=== PATIENT | male | born 1975 | race Hispanic/Latino ===

== ENCOUNTER 2017-11-01 16:44 | Inpatient (IN) | payer MEDICAID ==
[2017-11-01] MEDS ORDERED: Sodium Chloride 0.9% 1,000 ML IV ONE (18:29)
[2017-11-01] MEDS ORDERED: Sodium Chloride 0.9% 1,000 ML ONE (18:50)
[2017-11-01 18:51] LABS: BASO % 0.2 % (0.0-2.0); EOS # 0.1 K/uL (0.0-0.7); EOS % 0.9 % (0.0-4.0); HEMOGLOBIN 13.4 g/dL (12.0-18.0); LYMPH # 1.6 K/uL (1.0-4.3); LYMPH % 12.7 % (20.0-40.0); MEAN CELL VOLUME 80.4 fL (80.0-94.0); MEAN CORPUSCULAR HEMOGLOBIN 27.7 pg (27.0-31.0); MEAN CORPUSCULAR HGB CONC 34.5 g/dL (33.0-37.0); MEAN PLATELET VOLUME 8.2 fL (7.2-11.7); MONO # 0.5 K/uL (0.0-0.8); MONO % 4.2 % (0.0-10.0); RBC 4.83 Mil/uL (4.40-5.90); WHITE BLOOD COUNT 12.2 K/uL (4.8-10.8)
[2017-11-01 18:59] LABS: PROTHROMBIN TIME 11.2 SECONDS (9.7-12.2)
[2017-11-01 19:00] LABS: ALB/GLOB RATIO 1.2 (1.0-2.1); ALBUMIN 4.2 g/dL (3.5-5.0); ALT/SGPT 40 U/L (21-72); AST/SGOT 28 U/L (17-59); BLOOD UREA NITROGEN 16 mg/dL (9-20); CALCIUM 9.2 mg/dl (8.6-10.4); GFR AFRICAN-AMERICAN > 60; GFR NON-AFRICAN AMERICAN > 60; LIPASE 44 U/L (23-300)
[2017-11-01] MEDS ORDERED: Morphine 4 MG/ML VIAL ONE (19:33)
--- NOTE | 2017-11-01 19:48 | RAD ---
PROCEDURE: Radiographs of the chest and abdomen (obstructive series) HISTORY: abd pain, h/o SBO COMPARISON: No prior. TECHNIQUE: AP radiograph of the chest, with upright and supine radiographs of the abdomen. FINDINGS: CHEST: Lungs: Clear. Cardiovascular: Normal size heart. No pulmonary vascular congestion. Pleura: No pleural fluid. No pneumothorax. Other findings: None. ABDOMEN AND PELVIS: Bowel: There are distended small bowel loops identified in the central abdomen with accompanying air-fluid levels in a pattern suggests of the mechanical distal large bowel obstruction although gas is seen within peripheral large-bowel segments. Clinically correlate further. Follow-up abdomen pelvis CT with oral and intravenous contrast is strongly advised. Free air: None. Bones: Unremarkable. Other findings: Limited postoperative changes seen in the mid abdomen possibly only involving the abdominal wall. IMPRESSION: Findings compatible with mechanical distal small bowel obstruction. Follow-up chest CT is advised with oral and intravenous contrast for added characterization of the bowel.
[2017-11-01] MEDS ORDERED: Iohexol 300 100 ML IJ ONE (20:19)
[2017-11-01] MEDS ORDERED: Iohexol 350mg/ml 100 ML ONE (20:20)
[2017-11-01 21:31] LABS: SQUAMOUS EPITHIAL < 1 /hpf (0-5); URINE BACTERIA RARE (<OCC); URINE BILIRUBIN NEGATIVE (NEGATIVE); URINE BLOOD NEGATIVE (NEGATIVE); URINE CLARITY Clear (Clear); URINE COLOR Yellow (YELLOW); URINE GLUCOSE (UA) NORMAL (Normal); URINE LEUKOCYTE ESTERASE NEG Leu/uL (Negative); URINE PROTEIN NEGATIVE (NEGATIVE); URINE UROBILINOGEN NORMAL mg/dL (0.2-1.0)
[2017-11-01 21:51] LABS: BARBITURATES, UR NEGATIVE (NEGATIVE); BENZODIAZEPINES, UR NEGATIVE (NEGATIVE); PHENCYCLIDINE, UR NEGATIVE (NEGATIVE)
[2017-11-01 21:52] LABS: OPIATES, UR POSITIVE (NEGATIVE)
--- NOTE | 2017-11-01 23:09 | CT ---
EXAM: CT Abdomen and Pelvis With Intravenous Contrast CLINICAL HISTORY: 42 years old, male; Pain and signs and symptoms; Vomiting; Abdominal pain; Generalized; Additional info: Abd pain R/O sbo TECHNIQUE: Axial computed tomography images of the abdomen and pelvis with intravenous contrast. All CT scans at this facility use one or more dose reduction techniques, viz.: automated exposure control; ma/kV adjustment per patient size (including targeted exams where dose is matched to indication; i.e. head); or iterative reconstruction technique. Coronal and sagittal reformatted images were created and reviewed. CONTRAST: 100 mL of omnipaque 350 administered intravenously. COMPARISON: CT - ABD PELVIS IV CONTRAST ONLY 2015-01-17 02:58 FINDINGS: Lung bases: Unremarkable. No mass. No consolidation. ABDOMEN: Liver: There is a diffuse decrease in hepatic parenchymal density, consistent with fatty infiltration. Gallbladder and bile ducts: Unremarkable. No calcified stones. No ductal dilation. Pancreas: Unremarkable. No mass. No ductal dilation. Spleen: Unremarkable. No splenomegaly. Adrenals: Unremarkable. No mass. Kidneys and ureters: There is a simple cyst in the right kidney. The left kidney is normal. No hydronephrosis. Stomach and bowel: The cecum and terminal ileum are located in the left lower quadrant. The small bowel loops are predominantly in the upper and right side of the abdomen. Findings suggest malrotation of the bowel. There is marked diffuse fluid filled distention of the small bowel measuring up to 6 cm in greatest diameter. There is mild stranding and fluid in the adjacent to the small bowel mesentery. The distal small bowel and terminal ileum are normal in caliber or decompressed. Findings suggest distal small bowel obstruction. There is no wall thickening or pericolonic stranding to suggest colitis. PELVIS: Appendix: No findings to suggest acute appendicitis. The appendix is located in the left lower quadrant. Bladder: Unremarkable. No mass. Reproductive: Unremarkable as visualized. ABDOMEN and PELVIS: Intraperitoneal space: Unremarkable. No free air. No significant fluid collection. Bones/joints: No acute fracture. No dislocation. Soft tissues: Unremarkable. Vasculature: The SMV is located anterior to the SMA. No abdominal aortic aneurysm. Lymph nodes: There are multiple enlarged mesenteric lymph nodes with mild adjacent inflammatory stranding possibly secondary to mesenteric adenitis, increased compared to the prior study. The largest retail field representative lymph node measures 2 cm. 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 Markedly distended small bowel with decompressed distal small bowel consistent with distal small bowel obstruction. Mesenteric adenopathy with inflammatory changes suggesting mesenteric adenitis.
--- NOTE | 2017-11-01 23:20 | C.PDOC ---
Time Seen by Provider: 11/01/17 17:56 Chief Complaint (Nursing): Abdominal Pain History Per: Patient Onset/Duration Of Symptoms: Days (1) Current Symptoms Are (Timing): Still Present Severity: Moderate Location Of Pain/Discomfort: Diffuse Quality Of Discomfort: "Pain" Associated Symptoms: Nausea, Vomiting Exacerbating Factors: Food Alleviating Factors: None Additional History Per: Prior Records Past Medical History Reviewed: Historical Data, Nursing Documentation, Vital Signs Vital Signs: Last Vital Signs Temp 98.4 F 11/01/17 20:48 Pulse 90 11/01/17 22:32 Resp 15 11/01/17 22:32 BP 124/79 11/01/17 22:32 Pulse Ox 95 11/01/17 23:24 - Medical History PMH: Obstructive Bowel Other PMH: Congenital intestinal malrotation Other Surgeries: Surgery for omphalocele as a baby Family History: States: Unknown Family Hx - Social History Hx Tobacco Use: Yes Hx Alcohol Use: No Hx Substance Use: No - Immunization History Hx Tetanus Toxoid Vaccination: Yes Hx Influenza Vaccination: No Review Of Systems Except As Marked, All Systems Reviewed And Found Negative. Constitutional: Negative for: Fever, Weakness Cardiovascular: Negative for: Chest Pain Respiratory: Negative for: Shortness of Breath Gastrointestinal: Positive for: Nausea, Abdominal Pain. Negative for: Diarrhea , Melena, Hematochezia, Hematemesis Genitourinary: Negative for: Dysuria, Scrotal Pain Musculoskeletal: Negative for: Neck Pain Skin: Negative for: Rash Neurological: Negative for: Weakness, Numbness Physical Exam - Physical Exam Appears: Non-toxic, Other (Uncomfortable in pain) Skin: Normal Color, Warm, Dry Head: Atraumatic, Normacephalic Eye(s): bilateral: Normal Inspection, PERRL, EOMI Neck: Normal ROM, Supple Cardiovascular: Rhythm Regular Respiratory: Normal Breath Sounds, No Accessory Muscle Use Gastrointestinal/Abdominal: Soft, Tenderness (nonspecific), Other (large surgical scar on abdomen) Back: No CVA Tenderness Extremity: Normal ROM Neurological/Psych: Oriented x3, Normal Motor, Normal Sensation ED Course And Treatment - Laboratory Results Result Diagrams: 11/01/17 18:44 11/01/17 18:44 O2 Sat by Pulse Oximetry: 95 Pulse Ox Interpretation: Normal - Other Rad Obstructive series X-Ray: Viewed By Me, Read By Radiologist Interpretation: PROCEDURE: Radiographs of the chest and abdomen (obstructive series). HISTORY: abd pain, h/o SBO. COMPARISON: No prior. TECHNIQUE: AP radiograph of the chest, with upright and supine radiographs of the abdomen. FINDINGS: CHEST: Lungs: Clear. Cardiovascular: Normal size heart. No pulmonary vascular congestion. Pleura: No pleural fluid. No pneumothorax. Other findings: None. ABDOMEN AND PELVIS: Bowel: There are distended small bowel loops identified in the central abdomen with accompanying air-fluid levels in a pattern suggests of the mechanical distal large bowel obstruction although gas is seen within peripheral large-bowel segments. Clinically correlate further. Follow-up abdomen pelvis CT with oral and intravenous contrast is strongly advised. Free air: None. Bones: Unremarkable. Other findings: Limited postoperative changes seen in the mid abdomen possibly only involving the abdominal wall. IMPRESSION: Findings compatible with mechanical distal small bowel obstruction. Follow-up chest CT is advised with oral and intravenous contrast for added characterization of the bowel. - CT Scan/US CT abd/pelv Other Rad Studies (CT/US): Read By Radiologist, Radiology Report Reviewed CT/US Interpretation: IMPRESSION: Intestinal malrotation with cecum and terminal ileum located in left lower. quadrant. . Markedly distended small bowel with decompressed distal small bowel consistent. with distal small bowel obstruction. . Mesenteric adenopathy with inflammatory changes suggesting mesenteric adenitis. Progress - Interventions Interventions:: Observation, Intravenous fluid - Medications Administered Intravenous: Antiemetic, Opiate - Data Reviewed Data Reviewed: Lab, Diagnostic imaging, Old records - Patient Status Patient status: Partially improved - Continuity of Care Discussed patient case with:: Patient, ED Nurse, Covering for PMD Discussed pt. case with medical device sales consultant/specialty: General Surgery - Patient Plan Patient Plan: Admission Disposition Discussed With : Juan Manuel Tapia Comment: He accepted pt on his service. He wants Dr. Lea to be consulted. Pt signed out to Dr. Santamaria (surgery resident). Doctor Will See Patient In The: Hospital Counseled Patient/Family Regarding: Studies Performed, Diagnosis - Disposition Disposition: HOSPITALIZED Disposition Time: 23:30 Condition: SERIOUS - Clinical Impression Clinical Impression: Small bowel obstruction
--- NOTE | 2017-11-01 23:48 | CP.PCM.HP ---
Past Patient History - Past Medical History & Family History Past Medical History?: Yes - Past Social History Smoking Status: Heavy Smoker > 10 Cigarettes Daily - CARDIAC Hx Cardiac Disorders: No - PULMONARY Hx Respiratory Disorders: No - NEUROLOGICAL Hx Neurological Disorder: No - HEENT Hx HEENT Problems: No - RENAL Hx Chronic Kidney Disease: No - ENDOCRINE/METABOLIC Hx Endocrine Disorders: No - HEMATOLOGICAL/ONCOLOGICAL Hx Blood Disorders: No - INTEGUMENTARY Hx Dermatological Problems: No - MUSCULOSKELETAL/RHEUMATOLOGICAL Hx Musculoskeletal Disorders: No Hx Falls: No - GASTROINTESTINAL Hx Bowel Surgery: Yes - GENITOURINARY/GYNECOLOGICAL Hx Genitourinary Disorders: No - PSYCHIATRIC Hx Substance Use: No - SURGICAL HISTORY Hx Surgeries: No - ANESTHESIA Hx Anesthesia: Yes Hx Anesthesia Reactions: No Meds Allergies/Adverse Reactions: Allergies Allergy/AdvReac Type Severity Reaction Status Date / Time No Known Allergies Allergy Verified 11/01/17 16:55 Results - Vital Signs Recent Vital Signs: Last Vital Signs Temp 98.4 F 11/01/17 20:48 Pulse 90 11/01/17 22:32 Resp 15 11/01/17 22:32 BP 124/79 11/01/17 22:32 Pulse Ox 95 11/01/17 23:31 - Labs Result Diagrams: 11/01/17 18:44 11/01/17 18:44 Labs: Laboratory Results - last 24 hr 11/01/17 11/01/17 11/01/17 18:44 18:44 18:44 WBC 12.2 H D RBC 4.83 Hgb 13.4 Hct 38.9 MCV 80.4 D MCH 27.7 MCHC 34.5 RDW 13.0 Plt Count 194 MPV 8.2 Neut % (Auto) 82.0 H Lymph % (Auto) 12.7 L [place] % (Auto) 4.2 Eos % (Auto) 0.9 Baso % (Auto) 0.2 Neut # (Auto) 10.0 H Lymph # (Auto) 1.6 [place] # (Auto) 0.5 Eos # (Auto) 0.1 Baso # (Auto) 0.0 PT 11.2 INR 1.0 APTT 34 Sodium 139 Potassium 4.0 Chloride 101 Carbon Dioxide 26 Anion Gap 16 BUN 16 Creatinine 0.8 Est GFR ( Amer) > 60 Est GFR (Non-Af Amer) > 60 Random Glucose 129 H Calcium 9.2 Total Bilirubin 0.3 AST 28 ALT 40 Alkaline Phosphatase 88 Total Protein 7.7 Albumin 4.2 Globulin 3.5 Albumin/Globulin Ratio 1.2 Lipase 44 Urine Color Urine Clarity Urine pH Ur Specific [place] Urine Protein Urine Glucose (UA) Urine Ketones Urine Blood Urine Nitrate Urine Bilirubin Urine Urobilinogen Ur Leukocyte Esterase Urine WBC (Auto) Urine RBC (Auto) Ur Squamous Epith Cells Urine Bacteria Urine Opiates Screen Urine Methadone Screen Ur Barbiturates Screen Ur Phencyclidine Scrn Ur Amphetamines Screen U Benzodiazepines Scrn U Oth Cocaine Metabols U Cannabinoids Screen 11/01/17 11/01/17 21:19 21:19 WBC RBC Hgb Hct MCV MCH MCHC RDW Plt Count MPV Neut % (Auto) Lymph % (Auto) [place] % (Auto) Eos % (Auto) Baso % (Auto) Neut # (Auto) Lymph # (Auto) [place] # (Auto) Eos # (Auto) Baso # (Auto) PT INR APTT Sodium Potassium Chloride Carbon Dioxide Anion Gap BUN Creatinine Est GFR ( Amer) Est GFR (Non-Af Amer) Random Glucose Calcium Total Bilirubin AST ALT Alkaline Phosphatase Total Protein Albumin Globulin Albumin/Globulin Ratio Lipase Urine Color Yellow Urine Clarity Clear Urine pH 5.0 Ur Specific [place] 1.015 Urine Protein Negative Urine Glucose (UA) Normal Urine Ketones Negative Urine Blood Negative Urine Nitrate Negative Urine Bilirubin Negative Urine Urobilinogen Normal Ur Leukocyte Esterase Neg Urine WBC (Auto) < 1 Urine RBC (Auto) 1 Ur Squamous Epith Cells < 1 Urine Bacteria Rare Urine Opiates Screen Positive H Urine Methadone Screen Positive H Ur Barbiturates Screen Negative Ur Phencyclidine Scrn Negative Ur Amphetamines Screen Positive H U Benzodiazepines Scrn Negative U Oth Cocaine Metabols Negative U Cannabinoids Screen Negative
--- NOTE | 2017-11-01 23:53 | CP.PCM.CON ---
<Lauryn Mcgowan - Last Filed: 11/02/17 08:18> History of Present Illness - History of Present Illness History of Present Illness: Surgery Consult: Dr. Valderrama Pt is a 42M with PMHx significant for rercurrent bouts of SBO presenting to with complaints of abdominal pain. Pt states pain started last night, was diffuse in nature & associated with nausea. Pt admits to having normal BMs and states last BM was last night. He denies flatus however for the past few days. Pt states this episode felt like his previous episodes of obstruction so he came to the ER. In the ER, pt had an obstructive series & CT abdomen/pelvis which showed air fluid levels suggestive of SBO. Surgery called to evaluate. In the ER, pt resting comfortably in bed. States he hasn't had any more episodes of vomiting but abdominal pain is still present. He admits to multiple episodes of non- bloody, bilious vomiting upon arrival to ER. Denies flatus. Denies fevers/chills , chest pain or SOB. PMHx: recurrent SBO PSHx: laparotomy for omphalocele as an infant SocialHx: 30 pack smoking hx, denies EtOH, on methadone for hx of drug abuse NKDA Review of Systems - Review of Systems All systems: reviewed and no additional remarkable complaints except (as per HPI ) Past Patient History - Past Medical History & Family History Past Medical History?: Yes - Past Social History Smoking Status: Former Smoker Chewing Tobacco Use: No Alcohol: None - CARDIAC Hx Cardiac Disorders: No - PULMONARY Hx Respiratory Disorders: No - NEUROLOGICAL Hx Neurological Disorder: No - HEENT Hx HEENT Problems: No - RENAL Hx Chronic Kidney Disease: No - ENDOCRINE/METABOLIC Hx Endocrine Disorders: No - HEMATOLOGICAL/ONCOLOGICAL Hx Blood Disorders: No - INTEGUMENTARY Hx Dermatological Problems: No - MUSCULOSKELETAL/RHEUMATOLOGICAL Hx Musculoskeletal Disorders: No Hx Falls: No - GASTROINTESTINAL Hx Bowel Surgery: Yes - GENITOURINARY/GYNECOLOGICAL Hx Genitourinary Disorders: No - PSYCHIATRIC Hx Substance Use: Yes - SURGICAL HISTORY Hx Surgeries: Yes - ANESTHESIA Hx Anesthesia: Yes Hx Anesthesia Reactions: No Meds Allergies/Adverse Reactions: Allergies Allergy/AdvReac Type Severity Reaction Status Date / Time No Known Allergies Allergy Verified 11/01/17 16:55 Physical Exam - Constitutional Appears: Well, No Acute Distress - Head Exam Head Exam: ATRAUMATIC, NORMOCEPHALIC - Eye Exam Eye Exam: Normal appearance - ENT Exam ENT Exam: Mucous Membranes Moist - Respiratory Exam Respiratory Exam: NORMAL BREATHING PATTERN - Cardiovascular Exam Cardiovascular Exam: RRR - GI/Abdominal Exam GI & Abdominal Exam: Distended (tympanitic ), Soft, Tenderness (diffuse). absent: Guarding - Extremities Exam Extremities exam: Positive for: normal inspection - Neurological Exam Neurological exam: Alert, Oriented x3 - Skin Skin Exam: Dry, Warm Results - Vital Signs Recent Vital Signs: Last Vital Signs Temp 98.4 F 11/01/17 20:48 Pulse 90 11/01/17 22:32 Resp 15 11/01/17 22:32 BP 124/79 11/01/17 22:32 Pulse Ox 95 11/01/17 23:31 - Labs Result Diagrams: 11/01/17 18:44 11/01/17 18:44 Labs: Laboratory Results - last 24 hr 11/01/17 11/01/17 11/01/17 18:44 18:44 18:44 WBC 12.2 H D RBC 4.83 Hgb 13.4 Hct 38.9 MCV 80.4 D MCH 27.7 MCHC 34.5 RDW 13.0 Plt Count 194 MPV 8.2 Neut % (Auto) 82.0 H Lymph % (Auto) 12.7 L [place] % (Auto) 4.2 Eos % (Auto) 0.9 Baso % (Auto) 0.2 Neut # (Auto) 10.0 H Lymph # (Auto) 1.6 [place] # (Auto) 0.5 Eos # (Auto) 0.1 Baso # (Auto) 0.0 PT 11.2 INR 1.0 APTT 34 Sodium 139 Potassium 4.0 Chloride 101 Carbon Dioxide 26 Anion Gap 16 BUN 16 Creatinine 0.8 Est GFR ( Amer) > 60 Est GFR (Non-Af Amer) > 60 Random Glucose 129 H Calcium 9.2 Total Bilirubin 0.3 AST 28 ALT 40 Alkaline Phosphatase 88 Total Protein 7.7 Albumin 4.2 Globulin 3.5 Albumin/Globulin Ratio 1.2 Lipase 44 Urine Color Urine Clarity Urine pH Ur Specific [place] Urine Protein Urine Glucose (UA) Urine Ketones Urine Blood Urine Nitrate Urine Bilirubin Urine Urobilinogen Ur Leukocyte Esterase Urine WBC (Auto) Urine RBC (Auto) Ur Squamous Epith Cells Urine Bacteria Urine Opiates Screen Urine Methadone Screen Ur Barbiturates Screen Ur Phencyclidine Scrn Ur Amphetamines Screen U Benzodiazepines Scrn U Oth Cocaine Metabols U Cannabinoids Screen 11/01/17 11/01/17 21:19 21:19 WBC RBC Hgb Hct MCV MCH MCHC RDW Plt Count MPV Neut % (Auto) Lymph % (Auto) [place] % (Auto) Eos % (Auto) Baso % (Auto) Neut # (Auto) Lymph # (Auto) [place] # (Auto) Eos # (Auto) Baso # (Auto) PT INR APTT Sodium Potassium Chloride Carbon Dioxide Anion Gap BUN Creatinine Est GFR ( Amer) Est GFR (Non-Af Amer) Random Glucose Calcium Total Bilirubin AST ALT Alkaline Phosphatase Total Protein Albumin Globulin Albumin/Globulin Ratio Lipase Urine Color Yellow Urine Clarity Clear Urine pH 5.0 Ur Specific [place] 1.015 Urine Protein Negative Urine Glucose (UA) Normal Urine Ketones Negative Urine Blood Negative Urine Nitrate Negative Urine Bilirubin Negative Urine Urobilinogen Normal Ur Leukocyte Esterase Neg Urine WBC (Auto) < 1 Urine RBC (Auto) 1 Ur Squamous Epith Cells < 1 Urine Bacteria Rare Urine Opiates Screen Positive H Urine Methadone Screen Positive H Ur Barbiturates Screen Negative Ur Phencyclidine Scrn Negative Ur Amphetamines Screen Positive H U Benzodiazepines Scrn Negative U Oth Cocaine Metabols Negative U Cannabinoids Screen Negative - Imaging and Cardiology CT scan - abdomen Status: Image reviewed by me, Report reviewed by me Assessment & Plan - Assessment and Plan (Free Text) Assessment: 42M with SBO Plan: - Pt adamantly refusing NGT even after risks and benefits were explained - will cont to monitor with serial abdominal exams - NPO with IVF - pain management - d/w Dr. Lavelle Mcgowan, PGY-3 <Nick Valderrama B - Last Filed: 11/02/17 20:19> Meds - Medications Medications: Current Medications Enoxaparin Sodium (Lovenox) 40 mg SC DAILY [facility] Last Admin: 11/02/17 12:10 Dose: 40 mg Lactated Ringer's (Lactated Ringer's) 1,000 mls @ 125 mls/hr IV .Q8H [facility] Last Admin: 11/02/17 20:07 Dose: 125 mls/hr Piperacillin Sod/Tazobactam Sod (Zosyn 3.375 Gm Iv Premix) 3.375 gm in 50 mls @ 100 mls/hr IVPB Q8H [facility] PRN Reason: Protocol Last Admin: 11/02/17 16:45 Dose: 100 mls/hr Metronidazole (Flagyl) 500 mg in 100 mls @ 100 mls/hr IVPB Q8 [facility] PRN Reason: Protocol Last Admin: 11/02/17 14:30 Dose: 100 mls/hr Methadone HCl (Methadose) 240 mg PO DAILY [facility] Last Admin: 11/02/17 12:04 Dose: 240 mg Ondansetron HCl (Zofran Inj) 4 mg IVP Q4H PRN PRN Reason: Nausea/Vomiting Pantoprazole Sodium (Protonix Inj) 40 mg IVP DAILY [facility] Last Admin: 11/02/17 12:10 Dose: 40 mg Pneumococcal Polyvalent Vaccine (Pneumovax 23 Vaccine) 0.5 ml IM .ONCE ONE Stop: 11/04/17 10:01 Results - Vital Signs Recent Vital Signs: Last Vital Signs Temp 98.7 F 11/02/17 15:15 Pulse 80 11/02/17 15:15 Resp 20 11/02/17 15:15 BP 118/70 11/02/17 15:15 Pulse Ox 98 11/02/17 15:15 - Labs Result Diagrams: 11/01/17 18:44 11/01/17 18:44 Labs: Laboratory Results - last 24 hr 11/01/17 11/01/17 21:19 21:19 Urine Color Yellow Urine Clarity Clear Urine pH 5.0 Ur Specific [place] 1.015 Urine Protein Negative Urine Glucose (UA) Normal Urine Ketones Negative Urine Blood Negative Urine Nitrate Negative Urine Bilirubin Negative Urine Urobilinogen Normal Ur Leukocyte Esterase Neg Urine WBC (Auto) < 1 Urine RBC (Auto) 1 Ur Squamous Epith Cells < 1 Urine Bacteria Rare Urine Opiates Screen Positive H Urine Methadone Screen Positive H Ur Barbiturates Screen Negative Ur Phencyclidine Scrn Negative Ur Amphetamines Screen Positive H U Benzodiazepines Scrn Negative U Oth Cocaine Metabols Negative U Cannabinoids Screen Negative Attending/Attestation - Attestation I have personally seen and examined this patient.: Yes I have fully participated in the care of the patient.: Yes I have reviewed all pertinent clinical information: Yes Notes (Text): Pt was seen and examined at bedside Agree with above note and assessment Pt with Severe abdominal pain and nauses Abdomen: Soft, Tender in LLQ, ND Clinically intestinal obstruction present Labs and radiology reviewed Ass: PSBO due to adhesions Plan : Repeat AXR NG tube if vomits NPO, IVF CBC, BMP,PT/INR Plan d.w pt in detail Risk and benefit explained in detail.
[2017-11-02] MEDS ORDERED: Lactated Ringer's 1,000 ML ONE
[2017-11-02] MEDS ORDERED: Morphine 4 MG/ML VIAL ONE
[2017-11-02] MEDS: Piperacill/Tazo 3.375gm in Dex 3.375 GM/50 ML BAG IVPB SCH ×4 (00:19→23:51)
[2017-11-02 01:01] VITALS: RESP 20
[2017-11-02] MEDS: metroNIDAZOLE IV 500 mg/100 ml 500 MG/100 ML BAG IVPB SCH ×3 (08:45→22:10)
[2017-11-02] MEDS: Lactated Ringer's 1,000 ML IV SCH ×4 (08:50→20:07)
[2017-11-02] MEDS: Morphine 4 MG/ML VIAL IVP PRN ×2 (08:59)
--- NOTE | 2017-11-02 10:48 | CP.PCM.PN ---
Subjective - Date & Time of Evaluation Date of Evaluation: 11/02/17 Time of Evaluation: 10:45 - Subjective Subjective: PGY2 progress note for Dr. Tapia 42 year old male with past medical history of Omphocele with repair as an infant and recurrent SBO, last episode 3 months ago, is admitted for SBO. Patient developed severe abdominal pain about 2 days ago accompanied with N/V. Patient states that he is aware when he is getting symptoms of SBO and that is what brought him to ED. In ED, pt refused to have NG tube placed. This morning , he states his abd pain has improved since admission. Denies having any N/V, F /C, CP, SOB currently. PMHx: stated above Sx: Omphocele repai social: denies tobacco, etoh or drug use no home meds Objective - Vital Signs/Intake and Output Vital Signs (last 24 hours): Temp Pulse Resp BP Pulse Ox 98.2 F 82 20 119/69 96 11/02/17 08:00 11/02/17 08:00 11/02/17 08:00 11/02/17 08:00 11/02/17 08:00 - Medications Medications: Current Medications Lactated Ringer's (Lactated Ringer's) 1,000 mls @ 125 mls/hr IV .Q8H [facility] Last Admin: 11/02/17 08:50 Dose: 125 mls/hr Piperacillin Sod/Tazobactam Sod (Zosyn 3.375 Gm Iv Premix) 3.375 gm in 50 mls @ 100 mls/hr IVPB Q8H [facility] PRN Reason: Protocol Last Admin: 11/02/17 08:58 Dose: 100 mls/hr Metronidazole (Flagyl) 500 mg in 100 mls @ 100 mls/hr IVPB Q8 [facility] PRN Reason: Protocol Last Admin: 11/02/17 08:45 Dose: 100 mls/hr Methadone HCl (Methadose) 240 mg PO DAILY [facility] Ondansetron HCl (Zofran Inj) 4 mg IVP Q4H [facility]N PRN Reason: Nausea/Vomiting Pneumococcal Polyvalent Vaccine (Pneumovax 23 Vaccine) 0.5 ml IM .ONCE ONE Stop: 11/04/17 10:01 - Labs Labs: 11/01/17 18:44 11/01/17 18:44 PT 11.2 SECONDS (9.7-12.2) 11/01/17 18:44 INR 1.0 11/01/17 18:44 APTT 34 SECONDS (21-34) 11/01/17 18:44 - Constitutional Appears: Non-toxic, No Acute Distress - Head Exam Head Exam: ATRAUMATIC - ENT Exam ENT Exam: Mucous Membranes Moist - Respiratory Exam Respiratory Exam: Clear to Ausculation Bilateral, NORMAL BREATHING PATTERN. absent: Accessory Muscle Use, Rales, Rhonchi, Wheezes, Respiratory Distress - Cardiovascular Exam Cardiovascular Exam: REGULAR RHYTHM, +S1, +S2. absent: Gallop, Rubs, Murmur - GI/Abdominal Exam GI & Abdominal Exam: Soft, Tenderness, Normal Bowel Sounds. absent: Distended, Firm, Guarding, Rigid, Organomegaly Additional comments: mid line scar noted - Extremities Exam Extremities Exam: absent: Pedal Edema, Tenderness - Neurological Exam Neurological Exam: Alert, Awake, Oriented x3 - Psychiatric Exam Psychiatric exam: Normal Affect, Normal Mood - Skin Skin Exam: Dry, Intact, Normal Color, Warm Assessment and Plan - Assessment and Plan (Free Text) Assessment: 42 year old male with past medical history of omphocele repair in infancy and hx of recurrent SBOs is admitted for SBO. 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 SBO - Currently no plan for OR as pt clinically improving - Pt refused NG tube on admission - Surgery, Dr. Valderrama is consulted - GI, Dr. Graham is consulted - Continue LR at 125 cc - NPO - IV abx zosyn and flagyl - zofran prn - continue serial abd exams Opiate abuse - UDS positive for opiates, amphetamines and mathadone - Continue methadone 240 mg po qd Prophylaxis - Protonix - SCDs - Lovenox All orders and management per Dr. Tapia
[2017-11-02] MEDS: Methadone 40 mg Tab PO SCH (12:04)
[2017-11-02] MEDS: Enoxaparin 40 mg Syringe SC SCH (12:10)
--- NOTE | 2017-11-02 13:34 | CP.PCM.CON ---
<TapiaLexis - Last Filed: 11/02/17 13:51> History of Present Illness - History of Present Illness History of Present Illness: Initial GI Consult HPI: Patient is a 42yo male with past medical history of drug abuse presently on methadone, omphalocele s/p repair during infancy and recurrent episodes of SBO that presented to [facility] with complaints of abdominal pain. He reported that his abdominal pain was diffuse and associated with nausea and non- bilious, non-bloody emesis. He reports that prior to this episode he was in his usual state of health and had normal bowel movements with the last one being the day prior to presentation. Reported difficulty passing flatus. In the ED, an abdominal obstructive series was obtained which revealed findings compatible with distal small bowel obstruction. 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 GI consulted for SBO evaluation. He denied fever, chills, cough, focal weakness, numbness, tingling, chest pain, palpitations, SOB. 12point ROS as per above otherwise negative PMH: as stated above PSH: omphalocele repair as an infant Allergies: NKDA Social Hx: Tobacco use with 30 pack smoking history, denities etoh, history of drug abuse presently on methadone Family Hx: No history of GI malignancy Endoscopic hx: denies Past Patient History - Past Medical History & Family History Past Medical History?: Yes - Past Social History Smoking Status: Former Smoker Chewing Tobacco Use: No Alcohol: None - CARDIAC Hx Cardiac Disorders: No - PULMONARY Hx Respiratory Disorders: No - NEUROLOGICAL Hx Neurological Disorder: No - HEENT Hx HEENT Problems: No - RENAL Hx Chronic Kidney Disease: No - ENDOCRINE/METABOLIC Hx Endocrine Disorders: No - HEMATOLOGICAL/ONCOLOGICAL Hx Blood Disorders: No - INTEGUMENTARY Hx Dermatological Problems: No - MUSCULOSKELETAL/RHEUMATOLOGICAL Hx Musculoskeletal Disorders: No Hx Falls: No - GASTROINTESTINAL Hx Bowel Surgery: Yes - GENITOURINARY/GYNECOLOGICAL Hx Genitourinary Disorders: No - PSYCHIATRIC Hx Substance Use: Yes - SURGICAL HISTORY Hx Surgeries: Yes - ANESTHESIA Hx Anesthesia: Yes Hx Anesthesia Reactions: No Meds Allergies/Adverse Reactions: Allergies Allergy/AdvReac Type Severity Reaction Status Date / Time No Known Allergies Allergy Verified 11/01/17 16:55 - Medications Medications: Current Medications Enoxaparin Sodium (Lovenox) 40 mg SC DAILY [facility] Last Admin: 11/02/17 12:10 Dose: 40 mg Lactated Ringer's (Lactated Ringer's) 1,000 mls @ 125 mls/hr IV .Q8H [facility] Last Admin: 11/02/17 08:50 Dose: 125 mls/hr Piperacillin Sod/Tazobactam Sod (Zosyn 3.375 Gm Iv Premix) 3.375 gm in 50 mls @ 100 mls/hr IVPB Q8H [facility] PRN Reason: Protocol Last Admin: 11/02/17 08:58 Dose: 100 mls/hr Metronidazole (Flagyl) 500 mg in 100 mls @ 100 mls/hr IVPB Q8 [facility] PRN Reason: Protocol Last Admin: 11/02/17 08:45 Dose: 100 mls/hr Methadone HCl (Methadose) 240 mg PO DAILY [facility] Last Admin: 11/02/17 12:04 Dose: 240 mg Ondansetron HCl (Zofran Inj) 4 mg IVP Q4H PRN PRN Reason: Nausea/Vomiting Pantoprazole Sodium (Protonix Inj) 40 mg IVP DAILY [facility] Last Admin: 11/02/17 12:10 Dose: 40 mg Pneumococcal Polyvalent Vaccine (Pneumovax 23 Vaccine) 0.5 ml IM .ONCE ONE Stop: 11/04/17 10:01 Physical Exam - Constitutional Appears: No Acute Distress - Head Exam Head Exam: ATRAUMATIC, NORMAL INSPECTION, NORMOCEPHALIC - Eye Exam Eye Exam: EOMI, PERRL - ENT Exam ENT Exam: Mucous Membranes Moist - Neck Exam Neck exam: Positive for: Normal Inspection - Respiratory Exam Respiratory Exam: Clear to Auscultation Bilateral. absent: Rales, Rhonchi, Wheezes - Cardiovascular Exam Cardiovascular Exam: RRR, +S1, +S2. absent: Gallop, JVD, Rubs - GI/Abdominal Exam GI & Abdominal Exam: Distended, Soft, Tenderness. absent: Firm, Guarding, Rebound Additional comments: transverse abdominal scar from prior omphalocele repair - Extremities Exam Extremities exam: Positive for: normal inspection. Negative for: pedal edema - Neurological Exam Neurological exam: Alert, CN II-XII Intact, Oriented x3 - Psychiatric Exam Psychiatric exam: Normal Affect, Normal Mood - Skin Skin Exam: Dry, Intact, Normal Color, Warm Results - Vital Signs Recent Vital Signs: Last Vital Signs Temp 98.2 F 11/02/17 08:00 Pulse 82 11/02/17 08:00 Resp 20 11/02/17 08:00 BP 119/69 11/02/17 08:00 Pulse Ox 96 11/02/17 08:00 - Labs Result Diagrams: 11/01/17 18:44 11/01/17 18:44 Labs: Laboratory Results - last 24 hr 11/01/17 11/01/17 11/01/17 18:44 18:44 18:44 WBC 12.2 H D RBC 4.83 Hgb 13.4 Hct 38.9 MCV 80.4 D MCH 27.7 MCHC 34.5 RDW 13.0 Plt Count 194 MPV 8.2 Neut % (Auto) 82.0 H Lymph % (Auto) 12.7 L [place] % (Auto) 4.2 Eos % (Auto) 0.9 Baso % (Auto) 0.2 Neut # (Auto) 10.0 H Lymph # (Auto) 1.6 [place] # (Auto) 0.5 Eos # (Auto) 0.1 Baso # (Auto) 0.0 PT 11.2 INR 1.0 APTT 34 Sodium 139 Potassium 4.0 Chloride 101 Carbon Dioxide 26 Anion Gap 16 BUN 16 Creatinine 0.8 Est GFR ( Amer) > 60 Est GFR (Non-Af Amer) > 60 Random Glucose 129 H Calcium 9.2 Total Bilirubin 0.3 AST 28 ALT 40 Alkaline Phosphatase 88 Total Protein 7.7 Albumin 4.2 Globulin 3.5 Albumin/Globulin Ratio 1.2 Lipase 44 Urine Color Urine Clarity Urine pH Ur Specific [place] Urine Protein Urine Glucose (UA) Urine Ketones Urine Blood Urine Nitrate Urine Bilirubin Urine Urobilinogen Ur Leukocyte Esterase Urine WBC (Auto) Urine RBC (Auto) Ur Squamous Epith Cells Urine Bacteria Urine Opiates Screen Urine Methadone Screen Ur Barbiturates Screen Ur Phencyclidine Scrn Ur Amphetamines Screen U Benzodiazepines Scrn U Oth Cocaine Metabols U Cannabinoids Screen 11/01/17 11/01/17 21:19 21:19 WBC RBC Hgb Hct MCV MCH MCHC RDW Plt Count MPV Neut % (Auto) Lymph % (Auto) [place] % (Auto) Eos % (Auto) Baso % (Auto) Neut # (Auto) Lymph # (Auto) [place] # (Auto) Eos # (Auto) Baso # (Auto) PT INR APTT Sodium Potassium Chloride Carbon Dioxide Anion Gap BUN Creatinine Est GFR ( Amer) Est GFR (Non-Af Amer) Random Glucose Calcium Total Bilirubin AST ALT Alkaline Phosphatase Total Protein Albumin Globulin Albumin/Globulin Ratio Lipase Urine Color Yellow Urine Clarity Clear Urine pH 5.0 Ur Specific Zenia 1.015 Urine Protein Negative Urine Glucose (UA) Normal Urine Ketones Negative Urine Blood Negative Urine Nitrate Negative Urine Bilirubin Negative Urine Urobilinogen Normal Ur Leukocyte Esterase Neg Urine WBC (Auto) < 1 Urine RBC (Auto) 1 Ur Squamous Epith Cells < 1 Urine Bacteria Rare Urine Opiates Screen Positive H Urine Methadone Screen Positive H Ur Barbiturates Screen Negative Ur Phencyclidine Scrn Negative Ur Amphetamines Screen Positive H U Benzodiazepines Scrn Negative U Oth Cocaine Metabols Negative U Cannabinoids Screen Negative Assessment & Plan - Assessment and Plan (Free Text) Plan: 42yo male with history of drug abuse on methadone, omphalocele s/p repair in infancy, recurrent SBO presents with abdominal pain associated with nausea/ vomiting secondary to SBO 1. SBO 2. Opiate abuse 3. 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 Osei <Ac Osei - Last Filed: 11/02/17 17:54> Meds - Medications Medications: Current Medications Enoxaparin Sodium (Lovenox) 40 mg SC DAILY [facility] Last Admin: 11/02/17 12:10 Dose: 40 mg Lactated Ringer's (Lactated Ringer's) 1,000 mls @ 125 mls/hr IV .Q8H [facility] Last Admin: 11/02/17 16:53 Dose: Not Given Piperacillin Sod/Tazobactam Sod (Zosyn 3.375 Gm Iv Premix) 3.375 gm in 50 mls @ 100 mls/hr IVPB Q8H [facility] PRN Reason: Protocol Last Admin: 11/02/17 16:45 Dose: 100 mls/hr Metronidazole (Flagyl) 500 mg in 100 mls @ 100 mls/hr IVPB Q8 [facility] PRN Reason: Protocol Last Admin: 11/02/17 14:30 Dose: 100 mls/hr Methadone HCl (Methadose) 240 mg PO DAILY [facility] Last Admin: 11/02/17 12:04 Dose: 240 mg Ondansetron HCl (Zofran Inj) 4 mg IVP Q4H PRN PRN Reason: Nausea/Vomiting Pantoprazole Sodium (Protonix Inj) 40 mg IVP DAILY [facility] Last Admin: 11/02/17 12:10 Dose: 40 mg Pneumococcal Polyvalent Vaccine (Pneumovax 23 Vaccine) 0.5 ml IM .ONCE ONE Stop: 11/04/17 10:01 Results - Vital Signs Recent Vital Signs: Last Vital Signs Temp 98.7 F 11/02/17 15:15 Pulse 80 11/02/17 15:15 Resp 20 11/02/17 15:15 BP 118/70 11/02/17 15:15 Pulse Ox 98 11/02/17 15:15 - Labs Result Diagrams: 11/01/17 18:44 11/01/17 18:44 Labs: Laboratory Results - last 24 hr 11/01/17 11/01/17 11/01/17 18:44 18:44 18:44 WBC 12.2 H D RBC 4.83 Hgb 13.4 Hct 38.9 MCV 80.4 D MCH 27.7 MCHC 34.5 RDW 13.0 Plt Count 194 MPV 8.2 Neut % (Auto) 82.0 H Lymph % (Auto) 12.7 L [place] % (Auto) 4.2 Eos % (Auto) 0.9 Baso % (Auto) 0.2 Neut # (Auto) 10.0 H Lymph # (Auto) 1.6 [place] # (Auto) 0.5 Eos # (Auto) 0.1 Baso # (Auto) 0.0 PT 11.2 INR 1.0 APTT 34 Sodium 139 Potassium 4.0 Chloride 101 Carbon Dioxide 26 Anion Gap 16 BUN 16 Creatinine 0.8 Est GFR ( Amer) > 60 Est GFR (Non-Af Amer) > 60 Random Glucose 129 H Calcium 9.2 Total Bilirubin 0.3 AST 28 ALT 40 Alkaline Phosphatase 88 Total Protein 7.7 Albumin 4.2 Globulin 3.5 Albumin/Globulin Ratio 1.2 Lipase 44 Urine Color Urine Clarity Urine pH Ur Specific [place] Urine Protein Urine Glucose (UA) Urine Ketones Urine Blood Urine Nitrate Urine Bilirubin Urine Urobilinogen Ur Leukocyte Esterase Urine WBC (Auto) Urine RBC (Auto) Ur Squamous Epith Cells Urine Bacteria Urine Opiates Screen Urine Methadone Screen Ur Barbiturates Screen Ur Phencyclidine Scrn Ur Amphetamines Screen U Benzodiazepines Scrn U Oth Cocaine Metabols U Cannabinoids Screen 11/01/17 11/01/17 21:19 21:19 WBC RBC Hgb Hct MCV MCH MCHC RDW Plt Count MPV Neut % (Auto) Lymph % (Auto) [place] % (Auto) Eos % (Auto) Baso % (Auto) Neut # (Auto) Lymph # (Auto) [place] # (Auto) Eos # (Auto) Baso # (Auto) PT INR APTT Sodium Potassium Chloride Carbon Dioxide Anion Gap BUN Creatinine Est GFR ( Amer) Est GFR (Non-Af Amer) Random Glucose Calcium Total Bilirubin AST ALT Alkaline Phosphatase Total Protein Albumin Globulin Albumin/Globulin Ratio Lipase Urine Color Yellow Urine Clarity Clear Urine pH 5.0 Ur Specific [place] 1.015 Urine Protein Negative Urine Glucose (UA) Normal Urine Ketones Negative Urine Blood Negative Urine Nitrate Negative Urine Bilirubin Negative Urine Urobilinogen Normal Ur Leukocyte Esterase Neg Urine WBC (Auto) < 1 Urine RBC (Auto) 1 Ur Squamous Epith Cells < 1 Urine Bacteria Rare Urine Opiates Screen Positive H Urine Methadone Screen Positive H Ur Barbiturates Screen Negative Ur Phencyclidine Scrn Negative Ur Amphetamines Screen Positive H U Benzodiazepines Scrn Negative U Oth Cocaine Metabols Negative U Cannabinoids Screen Negative Attending/Attestation - Attestation I have personally seen and examined this patient.: Yes I have fully participated in the care of the patient.: Yes I have reviewed all pertinent clinical information: Yes Notes (Text): 11/02/17 17:53 42 year old male with h/o congenital omphalocele s/p repair and chronic intermittent SBO admitted with recurrent sbo. Recommend surgical eval. IV hydration/anti-emetics/pain control. Supportive measures.
--- NOTE | 2017-11-02 20:11 | CP.PCM.PN ---
Subjective - Date & Time of Evaluation Date of Evaluation: 11/02/17 Time of Evaluation: 08:40 - Subjective Subjective: clinically same Objective - Vital Signs/Intake and Output Vital Signs (last 24 hours): Temp Pulse Resp BP Pulse Ox 98.7 F 80 20 118/70 98 11/02/17 15:15 11/02/17 15:15 11/02/17 15:15 11/02/17 15:15 11/02/17 15:15 - Medications Medications: Current Medications Enoxaparin Sodium (Lovenox) 40 mg SC DAILY [facility] Last Admin: 11/02/17 12:10 Dose: 40 mg Lactated Ringer's (Lactated Ringer's) 1,000 mls @ 125 mls/hr IV .Q8H [facility] Last Admin: 11/02/17 20:07 Dose: 125 mls/hr Piperacillin Sod/Tazobactam Sod (Zosyn 3.375 Gm Iv Premix) 3.375 gm in 50 mls @ 100 mls/hr IVPB Q8H [facility] PRN Reason: Protocol Last Admin: 11/02/17 16:45 Dose: 100 mls/hr Metronidazole (Flagyl) 500 mg in 100 mls @ 100 mls/hr IVPB Q8 [facility] PRN Reason: Protocol Last Admin: 11/02/17 14:30 Dose: 100 mls/hr Methadone HCl (Methadose) 240 mg PO DAILY [facility] Last Admin: 11/02/17 12:04 Dose: 240 mg Ondansetron HCl (Zofran Inj) 4 mg IVP Q4H PRN PRN Reason: Nausea/Vomiting Pantoprazole Sodium (Protonix Inj) 40 mg IVP DAILY [facility] Last Admin: 11/02/17 12:10 Dose: 40 mg Pneumococcal Polyvalent Vaccine (Pneumovax 23 Vaccine) 0.5 ml IM .ONCE ONE Stop: 11/04/17 10:01 - Labs Labs: 11/01/17 18:44 11/01/17 18:44 PT 11.2 SECONDS (9.7-12.2) 11/01/17 18:44 INR 1.0 11/01/17 18:44 APTT 34 SECONDS (21-34) 11/01/17 18:44 - Constitutional Appears: Well - Head Exam Head Exam: ATRAUMATIC, NORMAL INSPECTION, NORMOCEPHALIC - Eye Exam Eye Exam: EOMI, Normal appearance, PERRL Pupil Exam: NORMAL ACCOMODATION, PERRL - ENT Exam ENT Exam: Mucous Membranes Moist, Normal Exam - Neck Exam Neck Exam: Full ROM, Normal Inspection. absent: Lymphadenopathy - Respiratory Exam Respiratory Exam: Decreased Breath Sounds - Cardiovascular Exam Cardiovascular Exam: REGULAR RHYTHM, +S1, +S2 - GI/Abdominal Exam GI & Abdominal Exam: Soft, Diminished Bowel Sounds - Rectal Exam Rectal Exam: Deferred
[2017-11-03] MEDS: Lactated Ringer's 1,000 ML IV SCH ×6 (02:17→23:45)
[2017-11-03] MEDS: metroNIDAZOLE IV 500 mg/100 ml 500 MG/100 ML BAG IVPB SCH ×3 (05:16→22:08)
--- NOTE | 2017-11-03 07:29 | CP.PCM.PN ---
Subjective - Date & Time of Evaluation Date of Evaluation: 11/03/17 Time of Evaluation: 07:22 - Subjective Subjective: PGy2 progress note for Dr. Tapia Pt seen and examined at bedside. No acute events overnight. Patient states his abdominal pain has improved. He is passing gas but no bowel movements yet. Patient denies having any F/c, N/V, CP, SOB. Patient is tolerating minimal solid foods without having any N/V. Objective - Vital Signs/Intake and Output Vital Signs (last 24 hours): Temp Pulse Resp BP Pulse Ox 97.7 F 86 20 126/79 95 11/03/17 00:28 11/03/17 00:28 11/03/17 00:28 11/03/17 00:28 11/03/17 00:28 Intake and Output: 11/03/17 11/03/17 06:59 18:59 Intake Total 1250 Balance 1250 - Medications Medications: Current Medications Acetaminophen (Tylenol 325mg Tab) 650 mg PO Q8 PRN PRN Reason: Headache Last Admin: 11/02/17 22:57 Dose: 650 mg Enoxaparin Sodium (Lovenox) 40 mg SC DAILY [facility] Last Admin: 11/02/17 12:10 Dose: 40 mg Lactated Ringer's (Lactated Ringer's) 1,000 mls @ 125 mls/hr IV .Q8H [facility] Last Admin: 11/03/17 02:17 Dose: Not Given Piperacillin Sod/Tazobactam Sod (Zosyn 3.375 Gm Iv Premix) 3.375 gm in 50 mls @ 100 mls/hr IVPB Q8H [facility] PRN Reason: Protocol Last Admin: 11/02/17 23:51 Dose: 100 mls/hr Metronidazole (Flagyl) 500 mg in 100 mls @ 100 mls/hr IVPB Q8 [facility] PRN Reason: Protocol Last Admin: 11/03/17 05:16 Dose: 100 mls/hr Methadone HCl (Methadose) 240 mg PO DAILY [facility] Last Admin: 11/02/17 12:04 Dose: 240 mg Ondansetron HCl (Zofran Inj) 4 mg IVP Q4H PRN PRN Reason: Nausea/Vomiting Pantoprazole Sodium (Protonix Inj) 40 mg IVP DAILY [facility] Last Admin: 11/02/17 12:10 Dose: 40 mg Pneumococcal Polyvalent Vaccine (Pneumovax 23 Vaccine) 0.5 ml IM .ONCE ONE Stop: 11/04/17 10:01 - Labs Labs: 11/01/17 18:44 18 18:44 PT 11.2 SECONDS (9.7-12.2) 18 18:44 INR 1.0 18 18:44 APTT 34 SECONDS (21-34) 11/01/17 18:44 - Constitutional Appears: Non-toxic, No Acute Distress - Head Exam Head Exam: ATRAUMATIC - ENT Exam ENT Exam: Mucous Membranes Moist - Respiratory Exam Respiratory Exam: Clear to Ausculation Bilateral. absent: Accessory Muscle Use , Rales, Rhonchi, Wheezes, Respiratory Distress - Cardiovascular Exam Cardiovascular Exam: REGULAR RHYTHM, +S1, +S2. absent: Gallop, Rubs, Murmur - GI/Abdominal Exam GI & Abdominal Exam: Soft, Normal Bowel Sounds. absent: Distended, Firm, Guarding, Rigid, Tenderness, Organomegaly - Extremities Exam Extremities Exam: absent: Pedal Edema, Tenderness - Neurological Exam Neurological Exam: Alert, Awake, Oriented x3 - Psychiatric Exam Psychiatric exam: Normal Affect, Normal Mood - Skin Skin Exam: Dry, Intact, Normal Color, Warm Assessment and Plan - Assessment and Plan (Free Text) Assessment: 42 year old male with past medical history of omphocele repair in infancy and hx of recurrent SBOs is admitted for SBO. 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 SBO - Currently no plan for OR as pt clinically improving - Pt refused NG tube on admission - Surgery, Dr. Valderrama is consulted - GI, Dr. Graham is consulted. recommend bowel regimen - Continue LR at 125 cc - Will advance diet as tolerated - IV abx zosyn and flagyl - zofran prn - pt started on miralax qd Opiate abuse - UDS positive for opiates, amphetamines and mathadone - Continue methadone 240 mg po qd Prophylaxis - Protonix - SCDs - Lovenox All orders and management per Dr. Tapia
--- NOTE | 2017-11-03 07:29 | CP.PCM.PN ---
<Lexis Tapia - Last Filed: 11/03/17 10:11> Subjective - Date & Time of Evaluation Date of Evaluation: 11/03/17 Time of Evaluation: 06:50 - Subjective Subjective: PGY4 GI Follow-up Pt seen and examined bedside Denies any abd pain +Flatus Denies any BM Denies any fever, chill or diaphoresis ROS: 12 point ROS conducted, neg other than above Objective - Vital Signs/Intake and Output Vital Signs (last 24 hours): Temp Pulse Resp BP Pulse Ox 97.7 F 86 20 126/79 95 11/03/17 00:28 11/03/17 00:28 11/03/17 00:28 11/03/17 00:28 11/03/17 00:28 Intake and Output: 11/03/17 11/03/17 06:59 18:59 Intake Total 1250 Balance 1250 - Medications Medications: Current Medications Acetaminophen (Tylenol 325mg Tab) 650 mg PO Q8 PRN PRN Reason: Headache Last Admin: 11/02/17 22:57 Dose: 650 mg Enoxaparin Sodium (Lovenox) 40 mg SC DAILY [facility] Last Admin: 11/02/17 12:10 Dose: 40 mg Lactated Ringer's (Lactated Ringer's) 1,000 mls @ 125 mls/hr IV .Q8H [facility] Last Admin: 11/03/17 02:17 Dose: Not Given Piperacillin Sod/Tazobactam Sod (Zosyn 3.375 Gm Iv Premix) 3.375 gm in 50 mls @ 100 mls/hr IVPB Q8H [facility] PRN Reason: Protocol Last Admin: 11/02/17 23:51 Dose: 100 mls/hr Metronidazole (Flagyl) 500 mg in 100 mls @ 100 mls/hr IVPB Q8 [facility] PRN Reason: Protocol Last Admin: 11/03/17 05:16 Dose: 100 mls/hr Methadone HCl (Methadose) 240 mg PO DAILY [facility] Last Admin: 11/02/17 12:04 Dose: 240 mg Ondansetron HCl (Zofran Inj) 4 mg IVP Q4H PRN PRN Reason: Nausea/Vomiting Pantoprazole Sodium (Protonix Inj) 40 mg IVP DAILY [facility] Last Admin: 11/02/17 12:10 Dose: 40 mg Pneumococcal Polyvalent Vaccine (Pneumovax 23 Vaccine) 0.5 ml IM .ONCE ONE Stop: 11/04/17 10:01 - Labs Labs: 11/01/17 18:44 11/01/17 18:44 PT 11.2 SECONDS (9.7-12.2) 11/01/17 18:44 INR 1.0 11/01/17 18:44 APTT 34 SECONDS (21-34) 11/01/17 18:44 - Constitutional Appears: Well, No Acute Distress - Head Exam Head Exam: ATRAUMATIC, NORMOCEPHALIC - Eye Exam Eye Exam: Normal appearance - ENT Exam ENT Exam: Mucous Membranes Moist - Neck Exam Neck Exam: Normal Inspection - Respiratory Exam Respiratory Exam: Clear to Ausculation Bilateral, NORMAL BREATHING PATTERN. absent: Rales, Rhonchi, Wheezes, Respiratory Distress - Cardiovascular Exam Cardiovascular Exam: REGULAR RHYTHM, +S1, +S2 - GI/Abdominal Exam GI & Abdominal Exam: Soft, Normal Bowel Sounds. 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 Lew <Dev Lew - Last Filed: 11/03/17 10:18> Objective - Vital Signs/Intake and Output Vital Signs (last 24 hours): Temp Pulse Resp BP Pulse Ox 98.2 F 66 20 118/71 96 11/03/17 08:00 11/03/17 08:00 11/03/17 08:00 11/03/17 08:00 11/03/17 08:00 Intake and Output: 11/03/17 11/03/17 06:59 18:59 Intake Total 1250 Balance 1250 - Medications Medications: Current Medications Acetaminophen (Tylenol 325mg Tab) 650 mg PO Q8 PRN PRN Reason: Headache Last Admin: 11/02/17 22:57 Dose: 650 mg Enoxaparin Sodium (Lovenox) 40 mg SC DAILY [facility] Last Admin: 11/03/17 10:05 Dose: 40 mg Lactated Ringer's (Lactated Ringer's) 1,000 mls @ 125 mls/hr IV .Q8H [facility] Last Admin: 11/03/17 02:17 Dose: Not Given Piperacillin Sod/Tazobactam Sod (Zosyn 3.375 Gm Iv Premix) 3.375 gm in 50 mls @ 100 mls/hr IVPB Q8H [facility] PRN Reason: Protocol Last Admin: 11/03/17 10:06 Dose: 100 mls/hr Metronidazole (Flagyl) 500 mg in 100 mls @ 100 mls/hr IVPB Q8 [facility] PRN Reason: Protocol Last Admin: 11/03/17 05:16 Dose: 100 mls/hr Methadone HCl (Methadose) 240 mg PO DAILY [facility] Last Admin: 11/03/17 10:03 Dose: 240 mg Ondansetron HCl (Zofran Inj) 4 mg IVP Q4H PRN PRN Reason: Nausea/Vomiting Pantoprazole Sodium (Protonix Inj) 40 mg IVP DAILY [facility] Last Admin: 11/03/17 10:06 Dose: 40 mg Pneumococcal Polyvalent Vaccine (Pneumovax 23 Vaccine) 0.5 ml IM .ONCE ONE Stop: 11/04/17 10:01 Polyethylene Glycol (Miralax) 17 gm PO DAILY [facility] - Labs Labs: 11/01/17 18:44 11/01/17 18:44 PT 11.2 SECONDS (9.7-12.2) 11/01/17 18:44 INR 1.0 11/01/17 18:44 APTT 34 SECONDS (21-34) 11/01/17 18:44 Attending/Attestation - Attestation I have personally seen and examined this patient.: Yes I have fully participated in the care of the patient.: Yes I have reviewed all pertinent clinical information, including history, physical exam and plan: Yes Notes (Text): 11/03/17 10:15 I have seen and examined patient with GI fellow. No acute events overnight, he is seen resting in bed comfortably. He continues to endorse mild gonzales- umbilical abdominal pain but denies nausea, vomiting. + flatus. Tolerating PO liquids without difficulty. Review of vitals from today are normal. History of opiate abuse, on methadone Abdominal pain - small bowel obstruction Chronic constipation - Liquid diet as tolerated - Maintain bowel regimen to prevent constipation symptoms - Follow up surgical recommendations - After hospital discharge, patient would benefit from elective outpatient GI follow up with consideration of colonoscopy given recurrent bowel obstruction to exclude for colonic lesion. No planned intervention at this time, will sign off case. Please reconsult as necessary, thank you.
--- NOTE | 2017-11-03 07:56 | CP.PCM.PN ---
<LópezOmari - Last Filed: 11/03/17 07:54> Subjective - Date & Time of Evaluation Date of Evaluation: 11/03/17 Time of Evaluation: 07:54 - Subjective Subjective: Surgery PT seen and examined. No acute events. Denies fever, nausea,BM. passing flauts. amb+ void+ Objective - Vital Signs/Intake and Output Vital Signs (last 24 hours): Temp Pulse Resp BP Pulse Ox 97.7 F 86 20 126/79 95 11/03/17 00:28 11/03/17 00:28 11/03/17 00:28 11/03/17 00:28 11/03/17 00:28 Intake and Output: 11/03/17 11/03/17 06:59 18:59 Intake Total 1250 Balance 1250 - Medications Medications: Current Medications Acetaminophen (Tylenol 325mg Tab) 650 mg PO Q8 PRN PRN Reason: Headache Last Admin: 11/02/17 22:57 Dose: 650 mg Enoxaparin Sodium (Lovenox) 40 mg SC DAILY [facility] Last Admin: 11/02/17 12:10 Dose: 40 mg Lactated Ringer's (Lactated Ringer's) 1,000 mls @ 125 mls/hr IV .Q8H [facility] Last Admin: 11/03/17 02:17 Dose: Not Given Piperacillin Sod/Tazobactam Sod (Zosyn 3.375 Gm Iv Premix) 3.375 gm in 50 mls @ 100 mls/hr IVPB Q8H [facility] PRN Reason: Protocol Last Admin: 11/02/17 23:51 Dose: 100 mls/hr Metronidazole (Flagyl) 500 mg in 100 mls @ 100 mls/hr IVPB Q8 [facility] PRN Reason: Protocol Last Admin: 11/03/17 05:16 Dose: 100 mls/hr Methadone HCl (Methadose) 240 mg PO DAILY [facility] Last Admin: 11/02/17 12:04 Dose: 240 mg Ondansetron HCl (Zofran Inj) 4 mg IVP Q4H PRN PRN Reason: Nausea/Vomiting Pantoprazole Sodium (Protonix Inj) 40 mg IVP DAILY [facility] Last Admin: 11/02/17 12:10 Dose: 40 mg Pneumococcal Polyvalent Vaccine (Pneumovax 23 Vaccine) 0.5 ml IM .ONCE ONE Stop: 11/04/17 10:01 Polyethylene Glycol (Miralax) 17 gm PO DAILY [facility] - Labs Labs: 11/01/17 18:44 11/01/17 18:44 PT 11.2 SECONDS (9.7-12.2) 11/01/17 18:44 INR 1.0 11/01/17 18:44 APTT 34 SECONDS (21-34) 11/01/17 18:44 - Constitutional Appears: No Acute Distress - Head Exam Head Exam: ATRAUMATIC, NORMAL INSPECTION, NORMOCEPHALIC - Eye Exam Eye Exam: EOMI, Normal appearance, PERRL Pupil Exam: NORMAL ACCOMODATION, PERRL - ENT Exam ENT Exam: Mucous Membranes Moist, Normal Exam - Neck Exam Neck Exam: Full ROM, Normal Inspection. absent: Lymphadenopathy - Respiratory Exam Respiratory Exam: Clear to Ausculation Bilateral, NORMAL BREATHING PATTERN - Cardiovascular Exam Cardiovascular Exam: REGULAR RHYTHM, +S1, +S2. absent: Murmur - GI/Abdominal Exam GI & Abdominal Exam: Soft, Normal Bowel Sounds. absent: Distended, Tenderness Additional comments: well healed scars. Mild TTP. - Extremities Exam Extremities Exam: Full ROM, Normal Capillary Refill, Normal Inspection. absent : Joint Swelling, Pedal Edema - Back Exam Back Exam: NORMAL INSPECTION - Neurological Exam Neurological Exam: Alert, Awake, CN II-XII Intact, Normal Gait, Oriented x3 - Psychiatric Exam Psychiatric exam: Normal Affect, Normal Mood - Skin Skin Exam: Dry, Intact, Normal Color, Warm Assessment and Plan - Assessment and Plan (Free Text) Assessment: SBO: flatus -NPO , may advance later today -IVF -f/u Abd nancy WIll JOS Valderrama <Nick Valderrama - Last Filed: 11/06/17 19:16> Objective - Vital Signs/Intake and Output Vital Signs (last 24 hours): Temp Pulse Resp BP Pulse Ox 98.1 F 68 20 115/54 L 95 11/04/17 08:39 11/04/17 08:39 11/04/17 08:39 11/04/17 08:39 11/04/17 08:39 - Labs Labs: 11/03/17 10:52 11/03/17 10:52 PT 11.2 SECONDS (9.7-12.2) 06/05/18 18:44 INR 1.0 11/01/17 18:44 APTT 34 SECONDS (21-34) 11/01/17 18:44 Attending/Attestation - Attestation I have personally seen and examined this patient.: Yes I have fully participated in the care of the patient.: Yes I have reviewed all pertinent clinical information, including history, physical exam and plan: Yes Notes (Text): Pt was see and examined at bedside Agree with above note and assessment Pt with PSBO due to adhesions Improving clinically Passing flatus, No BM C.w liquid diet Plan d.w pt in detail Risk and benefit explained in detail.
[2017-11-03] MEDS: Methadone 40 mg Tab PO SCH (10:03)
[2017-11-03] MEDS: Enoxaparin 40 mg Syringe SC SCH (10:05)
[2017-11-03] MEDS: Piperacill/Tazo 3.375gm in Dex 3.375 GM/50 ML BAG IVPB SCH ×3 (10:06→23:56)
[2017-11-03] MEDS: POLYETHYLENE GLYCOL 3350 17 GM/Dose PACKET PO SCH (10:52)
[2017-11-03 11:04] LABS: BASO % 0.3 % (0.0-2.0); EOS # 0.2 K/uL (0.0-0.7); EOS % 4.4 % (0.0-4.0); HEMOGLOBIN 11.5 g/dL (12.0-18.0); LYMPH # 1.8 K/uL (1.0-4.3); LYMPH % 37.4 % (20.0-40.0); MEAN CELL VOLUME 82.4 fL (80.0-94.0); MEAN CORPUSCULAR HEMOGLOBIN 27.5 pg (27.0-31.0); MEAN CORPUSCULAR HGB CONC 33.3 g/dL (33.0-37.0); MEAN PLATELET VOLUME 8.5 fL (7.2-11.7); MONO # 0.4 K/uL (0.0-0.8); MONO % 7.6 % (0.0-10.0); NEUT # 2.5 K/uL (1.8-7.0); NEUT % 50.3 % (50.0-75.0); RBC 4.19 Mil/uL (4.40-5.90); RED CELL DISTRIBUTION WIDTH 13.3 % (11.5-14.5); WHITE BLOOD COUNT 4.9 K/uL (4.8-10.8)
[2017-11-03 11:24] LABS: ALB/GLOB RATIO 1.3 (1.0-2.1); ALBUMIN 3.4 g/dL (3.5-5.0); ALT/SGPT 39 U/L (21-72); AST/SGOT 24 U/L (17-59); BLOOD UREA NITROGEN 15 mg/dL (9-20); CALCIUM 7.9 mg/dl (8.6-10.4); GFR AFRICAN-AMERICAN > 60; GFR NON-AFRICAN AMERICAN > 60
--- NOTE | 2017-11-03 16:58 | RAD ---
HISTORY: sbo COMPARISON: CT abdomen and pelvic report 11/01/2017 noted. That exam referenced malrotation FINDINGS: BOWEL: Moderate left and right colonic stool retention noted. Mid abdominal surgical changes project horizontally. There are epigastric apparently colonic distended loops present and nondistended yet stool filled "Left and right" colon segments noted BONES: Normal. OTHER FINDINGS: None. IMPRESSION: The right hemidiaphragm is not visually included on this exam. No free air in the left subdiaphragmatic location appreciated Left and right sided stool contents and postsurgical changes noted. No definitive small bowel loop distension noted. The moderately distended epigastric bowel loops appear colon related per suggested haustral markings. Correlation and follow-up recommended. History per CT references malrotation
--- NOTE | 2017-11-03 19:20 | CP.PCM.PN ---
Subjective - Date & Time of Evaluation Date of Evaluation: 11/03/17 Time of Evaluation: 08:40 - Subjective Subjective: clinically same Objective - Vital Signs/Intake and Output Vital Signs (last 24 hours): Temp Pulse Resp BP Pulse Ox 97.7 F 58 L 20 123/81 95 11/03/17 15:00 11/03/17 15:00 11/03/17 15:00 11/03/17 15:00 11/03/17 15:00 - Medications Medications: Current Medications Acetaminophen (Tylenol 325mg Tab) 650 mg PO Q8 PRN PRN Reason: Headache Last Admin: 11/02/17 22:57 Dose: 650 mg Enoxaparin Sodium (Lovenox) 40 mg SC DAILY [facility] Last Admin: 11/03/17 10:05 Dose: 40 mg Lactated Ringer's (Lactated Ringer's) 1,000 mls @ 125 mls/hr IV .Q8H [facility] Last Admin: 11/03/17 17:55 Dose: Not Given Piperacillin Sod/Tazobactam Sod (Zosyn 3.375 Gm Iv Premix) 3.375 gm in 50 mls @ 100 mls/hr IVPB Q8H [facility] PRN Reason: Protocol Last Admin: 11/03/17 16:29 Dose: 100 mls/hr Metronidazole (Flagyl) 500 mg in 100 mls @ 100 mls/hr IVPB Q8 [facility] PRN Reason: Protocol Last Admin: 11/03/17 13:47 Dose: 100 mls/hr Methadone HCl (Methadose) 240 mg PO DAILY [facility] Last Admin: 11/03/17 10:03 Dose: 240 mg Ondansetron HCl (Zofran Inj) 4 mg IVP Q4H PRN PRN Reason: Nausea/Vomiting Pantoprazole Sodium (Protonix Inj) 40 mg IVP DAILY [facility] Last Admin: 11/03/17 10:06 Dose: 40 mg Pneumococcal Polyvalent Vaccine (Pneumovax 23 Vaccine) 0.5 ml IM .ONCE ONE Stop: 11/04/17 10:01 Polyethylene Glycol (Miralax) 17 gm PO DAILY [facility] Last Admin: 11/03/17 10:52 Dose: 17 gm - Labs Labs: 11/03/17 10:52 11/03/17 10:52 PT 11.2 SECONDS (9.7-12.2) 11/01/17 18:44 INR 1.0 11/01/17 18:44 APTT 34 SECONDS (21-34) 11/01/17 18:44 - Constitutional Appears: Well - Head Exam Head Exam: ATRAUMATIC, NORMAL INSPECTION, NORMOCEPHALIC - Eye Exam Eye Exam: EOMI, Normal appearance, PERRL Pupil Exam: NORMAL ACCOMODATION, PERRL - ENT Exam ENT Exam: Mucous Membranes Moist, Normal Exam - Neck Exam Neck Exam: Full ROM, Normal Inspection. absent: Lymphadenopathy - Respiratory Exam Respiratory Exam: Decreased Breath Sounds - Cardiovascular Exam Cardiovascular Exam: REGULAR RHYTHM, +S1, +S2 - GI/Abdominal Exam GI & Abdominal Exam: Soft, Diminished Bowel Sounds - Rectal Exam Rectal Exam: Deferred
[2017-11-04] MEDS: metroNIDAZOLE IV 500 mg/100 ml 500 MG/100 ML BAG IVPB SCH (05:22)
[2017-11-04] MEDS: Lactated Ringer's 1,000 ML IV SCH ×2 (05:28→09:53)
--- NOTE | 2017-11-04 06:53 | CP.PCM.PN ---
Subjective - Date & Time of Evaluation Date of Evaluation: 11/04/17 Time of Evaluation: 07:37 - Subjective Subjective: PGY2 Progress note for Dr. Jesus Tapia; all management as per Dr. Jesus Tapia This patient was seen and examined at bedside this AM; denies any acute complaints or events overnight; state still has not had real bowel movement and is requesting something a little stronger to go to the bathroom; denies fevers/ chills, ARIAS, CP, SOB, abdominal pain, N/V/D, dysuria/freq/urg or lower extremity pain/swelling. the patient is for d/c today. Objective - Vital Signs/Intake and Output Vital Signs (last 24 hours): Temp Pulse Resp BP Pulse Ox 98.5 F 60 20 123/73 96 11/04/17 00:00 11/04/17 00:00 11/04/17 00:00 11/04/17 00:00 11/04/17 00:00 Intake and Output: 11/03/17 11/04/17 18:59 06:59 Intake Total 1350 Balance 1350 - Medications Medications: Current Medications Acetaminophen (Tylenol 325mg Tab) 650 mg PO Q8 PRN PRN Reason: Headache Last Admin: 11/02/17 22:57 Dose: 650 mg Enoxaparin Sodium (Lovenox) 40 mg SC DAILY [facility] Last Admin: 11/03/17 10:05 Dose: 40 mg Lactated Ringer's (Lactated Ringer's) 1,000 mls @ 125 mls/hr IV .Q8H [facility] Last Admin: 11/04/17 05:28 Dose: 125 mls/hr Piperacillin Sod/Tazobactam Sod (Zosyn 3.375 Gm Iv Premix) 3.375 gm in 50 mls @ 100 mls/hr IVPB Q8H [facility] PRN Reason: Protocol Last Admin: 11/03/17 23:56 Dose: 100 mls/hr Metronidazole (Flagyl) 500 mg in 100 mls @ 100 mls/hr IVPB Q8 [facility] PRN Reason: Protocol Last Admin: 11/04/17 05:22 Dose: 100 mls/hr Methadone HCl (Methadose) 240 mg PO DAILY [facility] Last Admin: 11/03/17 10:03 Dose: 240 mg Ondansetron HCl (Zofran Inj) 4 mg IVP Q4H PRN PRN Reason: Nausea/Vomiting Pantoprazole Sodium (Protonix Inj) 40 mg IVP DAILY [facility] Last Admin: 11/03/17 10:06 Dose: 40 mg Pneumococcal Polyvalent Vaccine (Pneumovax 23 Vaccine) 0.5 ml IM .ONCE ONE Stop: 11/04/17 10:01 Polyethylene Glycol (Miralax) 17 gm PO DAILY [facility] Last Admin: 11/03/17 10:52 Dose: 17 gm - Labs Labs: 11/03/17 10:52 11/03/17 10:52 PT 11.2 SECONDS (9.7-12.2) 11/01/17 18:44 INR 1.0 11/01/17 18:44 APTT 34 SECONDS (21-34) 11/01/17 18:44 - Constitutional Appears: Well, Non-toxic - Head Exam Head Exam: ATRAUMATIC, NORMAL INSPECTION - Eye Exam Eye Exam: EOMI, Normal appearance, PERRL - ENT Exam ENT Exam: Mucous Membranes Moist - Neck Exam Neck Exam: Full ROM. absent: Lymphadenopathy - Respiratory Exam Respiratory Exam: Clear to Ausculation Bilateral, NORMAL BREATHING PATTERN. absent: Rales, Rhonchi, Wheezes - Cardiovascular Exam Cardiovascular Exam: REGULAR RHYTHM - GI/Abdominal Exam GI & Abdominal Exam: Soft. absent: Tenderness, Organomegaly - Extremities Exam Extremities Exam: Full ROM. 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 SBO; resolved - Currently no plan for OR as pt clinically improving - Pt refused NG tube on admission - Surgery, Dr. Valderrama is consulted - GI, Dr. Graham is consulted. recommend bowel regimen - Continue LR at 125 cc - Will advance diet as tolerated - IV abx zosyn and flagyl - zofran prn - pt started on miralax qd On d/c patient will need to be vigilant about increasing PO intake of H20, fiber to help with bowel movements. Can consider outpatient rexulti to help with opiod induced constipation. Opiate abuse;chronic - UDS positive for opiates, amphetamines and mathadone - Continue methadone 240 mg po qd Prophylaxis - Protonix - SCDs - Lovenox The patient is stable for d/c as per Dr. Jesus Tapia On d/c patient will need to be vigilant about increasing PO intake of H20, fiber to help with bowel movements. Can consider outpatient rexulti to help with opiod induced constipation patient should f/u with GI for outpatient colonoscopy as they indicated for chronic obstruction to r/o mass All orders and management per Dr. Tapia
[2017-11-04] MEDS ORDERED: Magnesium Citrate Oral SOL (300 ml) PO ONE (07:33)
[2017-11-04 08:40] VITALS: BP 115/54; PULSE 68; TEMP 98.1; O2SAT 95
[2017-11-04] MEDS: Methadone 40 mg Tab PO SCH (09:36)
[2017-11-04] MEDS: POLYETHYLENE GLYCOL 3350 17 GM/Dose PACKET PO SCH (09:39)
[2017-11-04] MEDS: Piperacill/Tazo 3.375gm in Dex 3.375 GM/50 ML BAG IVPB SCH (09:40)
[2017-11-04] MEDS: Enoxaparin 40 mg Syringe SC SCH (09:53)
[2017-11-04] MEDS ORDERED: Pneumococcal 23-Valent Vaccine IM ONE (10:00)
--- NOTE | 2017-11-04 13:47 | CP.PCM.PN ---
<Selvin Soares - Last Filed: 11/04/17 13:44> Subjective - Date & Time of Evaluation Date of Evaluation: 11/04/17 Time of Evaluation: 07:00 - Subjective Subjective: General Surgery Progress Note for Dr. Valderrama This 42M was seen and examined this AM at bedside. No acute events overnight. He is tolerating clear liquid diet and candy. He is passing gas denies bowel movement. He denies any fevers chills chest pain or SOB. Objective - Vital Signs/Intake and Output Vital Signs (last 24 hours): Temp Pulse Resp BP Pulse Ox 98.1 F 68 20 115/54 L 95 11/04/17 08:39 11/04/17 08:39 11/04/17 08:39 11/04/17 08:39 11/04/17 08:39 Intake and Output: 11/04/17 11/04/17 06:59 18:59 Intake Total 2550 500 Output Total 1100 800 Balance 1450 -300 - Medications Medications: Current Medications Acetaminophen (Tylenol 325mg Tab) 650 mg PO Q8 PRN PRN Reason: Headache Last Admin: 11/02/17 22:57 Dose: 650 mg Enoxaparin Sodium (Lovenox) 40 mg SC DAILY [facility] Last Admin: 11/04/17 09:53 Dose: 40 mg Lactated Ringer's (Lactated Ringer's) 1,000 mls @ 125 mls/hr IV .Q8H [facility] Last Admin: 11/04/17 09:53 Dose: Not Given Piperacillin Sod/Tazobactam Sod (Zosyn 3.375 Gm Iv Premix) 3.375 gm in 50 mls @ 100 mls/hr IVPB Q8H [facility] PRN Reason: Protocol Last Admin: 11/04/17 09:40 Dose: 100 mls/hr Metronidazole (Flagyl) 500 mg in 100 mls @ 100 mls/hr IVPB Q8 [facility] PRN Reason: Protocol Last Admin: 11/04/17 05:22 Dose: 100 mls/hr Methadone HCl (Methadose) 240 mg PO DAILY [facility] Last Admin: 11/04/17 09:36 Dose: 240 mg Ondansetron HCl (Zofran Inj) 4 mg IVP Q4H [facility] PRN Reason: Nausea/Vomiting Pantoprazole Sodium (Protonix Inj) 40 mg IVP DAILY [facility] Last Admin: 11/04/17 09:54 Dose: 40 mg Polyethylene Glycol (Miralax) 17 gm PO DAILY [facility] Last Admin: 11/04/17 09:39 Dose: 17 gm - Labs Labs: 11/03/17 10:52 11/03/17 10:52 PT 11.2 SECONDS (9.7-12.2) 11/01/17 18:44 INR 1.0 11/01/17 18:44 APTT 34 SECONDS (21-34) 11/01/17 18:44 - Constitutional Appears: Non-toxic, No Acute Distress - Head Exam Head Exam: ATRAUMATIC, NORMOCEPHALIC - Eye Exam Eye Exam: EOMI, Normal appearance - ENT Exam ENT Exam: Mucous Membranes Moist - Respiratory Exam Respiratory Exam: NORMAL BREATHING PATTERN - Cardiovascular Exam Cardiovascular Exam: +S1, +S2 - GI/Abdominal Exam GI & Abdominal Exam: Soft. absent: Firm, Guarding, Rigid, Tenderness - Neurological Exam Neurological Exam: Alert, Awake - Psychiatric Exam Psychiatric exam: Normal Affect, Normal Mood - Skin Skin Exam: Dry, Intact Assessment and Plan - Assessment and Plan (Free Text) Assessment: 42M with recurrent SBO Currently tolerating clears Plan: Advance to fulls If patient does not progress will consider abdominal xray Further recs per Dr. Lavelle Soares PGY2 <Nick Valderrama - Last Filed: 11/06/17 19:32> Objective - Vital Signs/Intake and Output Vital Signs (last 24 hours): Temp Pulse Resp BP Pulse Ox 98.1 F 68 20 115/54 L 95 11/04/17 08:39 11/04/17 08:39 11/04/17 08:39 11/04/17 08:39 11/04/17 08:39 - Labs Labs: 11/03/17 10:52 11/03/17 10:52 PT 11.2 SECONDS (9.7-12.2) 11/01/17 18:44 INR 1.0 11/01/17 18:44 APTT 34 SECONDS (21-34) 11/01/17 18:44 Attending/Attestation - Attestation I have personally seen and examined this patient.: Yes I have fully participated in the care of the patient.: Yes I have reviewed all pertinent clinical information, including history, physical exam and plan: Yes Notes (Text): Pt was see and examined at bedside Agree with above note and assessment Pt with PSBO due to adhesions Improving clinically Passing flatus, No BM C.w liquid diet AXR in am Plan d.w pt in detail Risk and benefit explained in detail.
== END 2017-11-04 13:44 | disposition home or self-care (01) | DRG 180 ==
LOC: C.ER 16:44 → C.3T 23:31
PROVIDERS: ADMIT Internal Medicine Nephrology; ATTEND Internal Medicine Nephrology
DX: K56.51 Intestinal adhesions [bands], with partial obstruction (principal); F11.10 Opioid abuse, uncomplicated; F15.10 Other stimulant abuse, uncomplicated; Z53.20 Procedure and treatment not carried out because of patient's decision for unspecified reasons; I88.0 Nonspecific mesenteric lymphadenitis; Z72.0 Tobacco use

== ENCOUNTER 2017-11-05 18:34 | Inpatient (IN) | payer MEDICAID ==
[2017-11-05] MEDS ORDERED: Sodium Chloride 0.9% 1,000 ML IV ONE (19:31)
[2017-11-05 19:59] LABS: BASO % 0.1 % (0.0-2.0); EOS # 0.2 K/uL (0.0-0.7); EOS % 1.6 % (0.0-4.0); HEMOGLOBIN 13.6 g/dL (12.0-18.0); LYMPH # 1.8 K/uL (1.0-4.3); LYMPH % 11.8 % (20.0-40.0); MEAN CELL VOLUME 81.9 fL (80.0-94.0); MEAN CORPUSCULAR HEMOGLOBIN 27.1 pg (27.0-31.0); MEAN CORPUSCULAR HGB CONC 33.1 g/dL (33.0-37.0); MEAN PLATELET VOLUME 8.4 fL (7.2-11.7); MONO # 0.8 K/uL (0.0-0.8); MONO % 5.2 % (0.0-10.0); NEUT # 12.3 K/uL (1.8-7.0); NEUT % 81.3 % (50.0-75.0); NRBC % 0.1 % (0.0-2.0); RBC 5.03 Mil/uL (4.40-5.90); RED CELL DISTRIBUTION WIDTH 13.3 % (11.5-14.5); WHITE BLOOD COUNT 15.2 K/uL (4.8-10.8)
[2017-11-05] MEDS ORDERED: Morphine 4 MG/ML VIAL ONE (20:00)
[2017-11-05] MEDS ORDERED: Sodium Chloride 0.9% 1,000 ML ONE (20:00)
[2017-11-05 20:20] LABS: ALB/GLOB RATIO 1.1 (1.0-2.1); ALBUMIN 4.4 g/dL (3.5-5.0); ALT/SGPT 55 U/L (21-72); AST/SGOT 63 U/L (17-59); BLOOD UREA NITROGEN 10 mg/dL (9-20); CALCIUM 9.5 mg/dl (8.6-10.4); GFR AFRICAN-AMERICAN > 60; GFR NON-AFRICAN AMERICAN > 60; LIPASE 50 U/L (23-300)
--- NOTE | 2017-11-05 20:35 | C.PDOC ---
History Of Present Illness Pt was discharged from this hospital yesterday after being admitted for SBO. He states that his symptoms returned today. Time Seen by Provider: 11/05/17 19:19 Chief Complaint (Nursing): Abdominal Pain History Per: Patient Onset/Duration Of Symptoms: Hrs (this morning after eating lunch), Persistent Current Symptoms Are (Timing): Still Present Severity: Moderate Location Of Pain/Discomfort: Diffuse Quality Of Discomfort: "Pain" Associated Symptoms: Nausea, Vomiting Exacerbating Factors: Food Alleviating Factors: None Last Bowel Movement: Yesterday Additional History Per: Prior Records Past Medical History Reviewed: Historical Data, Nursing Documentation, Vital Signs Vital Signs: Last Vital Signs Temp 97.8 F 11/05/17 18:38 Pulse 90 11/05/17 20:10 Resp 14 11/05/17 20:10 BP 127/69 11/05/17 20:10 Pulse Ox 96 11/05/17 20:10 - Medical History PMH: Obstructive Bowel Other Surgeries: Omphalocele surgery as a baby. Family History: States: Unknown Family Hx - Social History Hx Tobacco Use: Yes Hx Alcohol Use: No Hx Substance Use: Yes - Immunization History Hx Tetanus Toxoid Vaccination: No Hx Influenza Vaccination: No Review Of Systems Except As Marked, All Systems Reviewed And Found Negative. Constitutional: Negative for: Fever Cardiovascular: Negative for: Chest Pain Respiratory: Negative for: Shortness of Breath Gastrointestinal: Positive for: Nausea, Vomiting, Abdominal Pain. Negative for : Diarrhea, Melena, Hematochezia, Hematemesis Genitourinary: Negative for: Dysuria Musculoskeletal: Negative for: Neck Pain Skin: Negative for: Rash Neurological: Negative for: Weakness, Numbness Physical Exam - Physical Exam Appears: Non-toxic, Other (Uncomfortable in pain) Skin: Normal Color, Warm, Dry, No Rash Head: Atraumatic, Normacephalic Eye(s): bilateral: Normal Inspection, PERRL, EOMI Neck: Normal ROM, Supple Cardiovascular: Rhythm Regular Respiratory: Normal Breath Sounds, No Accessory Muscle Use Gastrointestinal/Abdominal: Tenderness (nonspecific), Distention Male Genital: Normal Inspection, No Testicular Tenderness, No Testicular Swelling, No Inguinal Tenderness, No Inguinal Swelling, No Scrotal Swelling, Circumcised Extremity: Normal ROM Neurological/Psych: Oriented x3, Normal Motor, Normal Sensation ED Course And Treatment - Laboratory Results Result Diagrams: 11/05/17 19:55 11/05/17 19:55 O2 Sat by Pulse Oximetry: 96 Pulse Ox Interpretation: Normal - Other Rad Obstructed series X-Ray: Interpreted by Me, Viewed By Me Interpretation: Air-fluid levels. Progress Note: Pt is still refusing NG tube placement. Disposition Discussed With DrFabiana: Juan Manuel Tapia Comment: He wants to re-admit pt to the hospital. 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 Doctor Will See Patient In The: Hospital Counseled Patient/Family Regarding: Studies Performed, Diagnosis - Disposition Disposition: HOSPITALIZED Disposition Time: 20:36 Condition: GUARDED - Clinical Impression Clinical Impression: SBO (small bowel obstruction)
[2017-11-05] MEDS: Dextrose 5%/0.45% NS 1,000 ML IV SCH (22:06)
--- NOTE | 2017-11-06 01:44 | CP.PCM.CON ---
<Lauryn Mcgowan - Last Filed: 11/06/17 08:23> History of Present Illness - History of Present Illness History of Present Illness: Surgery Consult: Dr. Valderrama Pt is a 42M with PMHx significant for recurrent SBO who was just discharged from yesterday after an episode of SBO that was treated conservatively. Pt states that he as feeling ok when he went home & had pasta with chicken & broccoli which did not sit well with him & he started having abdominal pain. His pain was similar to his prior episodes with bloating inability to pass flatus so he came back to the ER. In the ER, an obstructive series was obtained and showed distended loops of bowel consistent with SBO. Surgery called to evaluate. Currently, pt is resting in bed. States he feels uncomfortable because of the pain. He also admits to episodes of bilious vomiting in the ER. His last BM was & does not recall the last time he had flatus. Denies F/C. PMHx: recurrent SBO PSHx: Ex-Lap for malrotation as an infant SocialHx: 30 pack yr smoker, admits to drug abuse in the past (on Methadone) NKDA Review of Systems - Review of Systems All systems: reviewed and no additional remarkable complaints except (as per HPI ) Past Patient History - Past Medical History & Family History Past Medical History?: Yes - Past Social History Smoking Status: Former Smoker - CARDIAC Hx Cardiac Disorders: No - PULMONARY Hx Respiratory Disorders: No - NEUROLOGICAL Hx Neurological Disorder: No - HEENT Hx HEENT Problems: No - ENDOCRINE/METABOLIC Hx Endocrine Disorders: No - HEMATOLOGICAL/ONCOLOGICAL Hx Blood Disorders: No - INTEGUMENTARY Hx Dermatological Problems: No - MUSCULOSKELETAL/RHEUMATOLOGICAL Hx Musculoskeletal Disorders: No Hx Falls: No - GASTROINTESTINAL Hx Gastrointestinal Disorders: Yes Hx Bowel Surgery: Yes - GENITOURINARY/GYNECOLOGICAL Hx Genitourinary Disorders: No - PSYCHIATRIC Hx Substance Use: Yes - SURGICAL HISTORY Hx Surgeries: Yes Other/Comment: Multiple Bowel Surgeries - ANESTHESIA Hx Anesthesia: Yes Hx Anesthesia Reactions: No Meds Allergies/Adverse Reactions: Allergies Allergy/AdvReac Type Severity Reaction Status Date / Time No Known Allergies Allergy Verified 11/01/17 16:55 - Medications Medications: Current Medications Ceftriaxone Sodium (Rocephin Iv 1 Gm Duplex) 50 mls @ 100 mls/hr IVPB DAILY [facility] PRN Reason: Protocol Dextrose/Sodium Chloride (Dextrose 5%/0.45% Ns 1000 Ml) 1,000 mls @ 100 mls/hr IV .Q10H [facility] Last Admin: 11/05/17 22:06 Dose: 100 mls/hr Methadone HCl (Methadose) 240 mg PO DAILY [facility] Pantoprazole Sodium (Protonix Inj) 40 mg IVP DAILY [facility] Physical Exam - Constitutional Appears: No Acute Distress - Head Exam Head Exam: ATRAUMATIC, NORMOCEPHALIC - Eye Exam Eye Exam: Normal appearance - ENT Exam ENT Exam: Mucous Membranes Moist - Respiratory Exam Respiratory Exam: NORMAL BREATHING PATTERN - Cardiovascular Exam Cardiovascular Exam: RRR - GI/Abdominal Exam GI & Abdominal Exam: Distended, Soft, Tenderness (around midline scar ). absent : Guarding, Rebound - Neurological Exam Neurological exam: Alert, Oriented x3 - Skin Skin Exam: Dry, Warm Results - Vital Signs Recent Vital Signs: Last Vital Signs Temp 98.4 F 11/05/17 23:50 Pulse 63 11/05/17 23:50 Resp 20 11/05/17 23:50 BP 132/86 11/05/17 23:50 Pulse Ox 96 11/05/17 23:50 - Labs Result Diagrams: 11/05/17 19:55 11/05/17 19:55 Labs: Laboratory Results - last 24 hr 11/05/17 11/05/17 19:55 19:55 WBC 15.2 H D RBC 5.03 Hgb 13.6 D Hct 41.2 MCV 81.9 MCH 27.1 MCHC 33.1 RDW 13.3 Plt Count 240 MPV 8.4 Neut % (Auto) 81.3 H Lymph % (Auto) 11.8 L Grundy % (Auto) 5.2 Eos % (Auto) 1.6 Baso % (Auto) 0.1 Neut # (Auto) 12.3 H Lymph # (Auto) 1.8 Grundy # (Auto) 0.8 Eos # (Auto) 0.2 Baso # (Auto) 0.0 Sodium 144 Potassium 5.2 Chloride 98 Carbon Dioxide 32 H Anion Gap 19 BUN 10 Creatinine 0.8 Est GFR ( Amer) > 60 Est GFR (Non-Af Amer) > 60 Random Glucose 154 H Calcium 9.5 Total Bilirubin 0.6 AST 63 H D ALT 55 Alkaline Phosphatase 73 Total Protein 8.2 Albumin 4.4 Globulin 3.8 Albumin/Globulin Ratio 1.1 Lipase 50 - Imaging and Cardiology Abdominal x-ray Status: Image reviewed by me Assessment & Plan - Assessment and Plan (Free Text) Assessment: 42M with recurrent SBO Plan: - pt once again adamantly refusing NGT and states he understands the risks - cont conservative management with NPO & IVF - serial abdominal exams - monitor bowel function - encourage ambulation - d/w Dr. Lavelle Mcgowan, PGY-3 <Nick Valderrama - Last Filed: 11/07/17 21:05> Results - Vital Signs Recent Vital Signs: Last Vital Signs Temp 97.7 F 11/07/17 15:00 Pulse 60 11/07/17 15:00 Resp 20 11/07/17 15:00 BP 131/56 L 11/07/17 15:00 Pulse Ox 95 11/07/17 15:00 - Labs Result Diagrams: 11/05/17 19:55 11/05/17 19:55 Attending/Attestation - Attestation I have personally seen and examined this patient.: Yes I have fully participated in the care of the patient.: Yes I have reviewed all pertinent clinical information: Yes Notes (Text): Pt was seen and examined at bedside Agree with above note and assessment Pt with recurrent PSBO C/o abdominal pain Abdomen: Soft, Mild tender, distended Labs and radiology reviewed Ass: PSBO recurrent due to adhesions Plan: NPO, IVF AXR in am c.w current mx Plan d.w pt in detail Risk and benefit explained in detail.
[2017-11-06] MEDS ORDERED: Morphine 4 MG/ML VIAL IVP STA (02:29)
--- NOTE | 2017-11-06 07:43 | RAD ---
PROCEDURE: Radiographs of the chest and abdomen (obstructive series) HISTORY: abd pain, h/o SBO COMPARISON: Comparison is made with the previous study dated 11/01/2017 TECHNIQUE: AP radiograph of the chest, with upright and supine radiographs of the abdomen. FINDINGS: CHEST: Lungs: Clear. Cardiovascular: Normal size heart. No pulmonary vascular congestion. Pleura: No pleural fluid. No pneumothorax. Other findings: None. ABDOMEN AND PELVIS: Bowel: Again noted are not dilated small bowel loops with multiple air-fluid levels at the mid abdomen. Findings again suspicious for bowel obstruction. Free air: None. Bones: Unremarkable. Other findings: None. IMPRESSION: Persistent dilated small bowel loops with air-fluid levels in the mid abdomen. Findings again suspicious for small bowel obstruction.
[2017-11-06] MEDS: Dextrose 5%/0.45% NS 1,000 ML IV SCH ×2 (08:30→17:19)
[2017-11-06] MEDS: Methadone 40 mg Tab PO SCH (10:12)
[2017-11-06] MEDS: cefTRIAXone IV 1 gm in Dextros 50 ML IVPB SCH (10:13)
[2017-11-06 12:04] LABS: URINE BILIRUBIN NEGATIVE (NEGATIVE); URINE BLOOD NEGATIVE (NEGATIVE); URINE CLARITY Clear (Clear); URINE COLOR Yellow (YELLOW); URINE GLUCOSE (UA) NORMAL (Normal); URINE LEUKOCYTE ESTERASE NEG Leu/uL (Negative); URINE PROTEIN NEGATIVE (NEGATIVE); URINE UROBILINOGEN NORMAL mg/dL (0.2-1.0)
[2017-11-06 12:26] LABS: BARBITURATES, UR NEGATIVE (NEGATIVE); BENZODIAZEPINES, UR NEGATIVE (NEGATIVE); PHENCYCLIDINE, UR NEGATIVE (NEGATIVE)
[2017-11-06 12:29] LABS: OPIATES, UR POSITIVE (NEGATIVE)
--- NOTE | 2017-11-06 16:16 | CP.PCM.HP ---
Past Patient History - Past Medical History & Family History Past Medical History?: Yes - Past Social History Smoking Status: Former Smoker - CARDIAC Hx Cardiac Disorders: No - PULMONARY Hx Respiratory Disorders: No - NEUROLOGICAL Hx Neurological Disorder: No - HEENT Hx HEENT Problems: No - ENDOCRINE/METABOLIC Hx Endocrine Disorders: No - HEMATOLOGICAL/ONCOLOGICAL Hx Blood Disorders: No - INTEGUMENTARY Hx Dermatological Problems: No - MUSCULOSKELETAL/RHEUMATOLOGICAL Hx Musculoskeletal Disorders: No Hx Falls: No - GASTROINTESTINAL Hx Gastrointestinal Disorders: Yes Hx Bowel Surgery: Yes - GENITOURINARY/GYNECOLOGICAL Hx Genitourinary Disorders: No - PSYCHIATRIC Hx Substance Use: Yes - SURGICAL HISTORY Hx Surgeries: Yes Other/Comment: Multiple Bowel Surgeries - ANESTHESIA Hx Anesthesia: Yes Hx Anesthesia Reactions: No Meds Allergies/Adverse Reactions: Allergies Allergy/AdvReac Type Severity Reaction Status Date / Time No Known Allergies Allergy Verified 11/01/17 16:55 Physical Exam - Constitutional Appears: Well - Head Exam Head Exam: ATRAUMATIC, NORMAL INSPECTION, NORMOCEPHALIC - Eye Exam Eye Exam: EOMI, Normal appearance, PERRL Pupil Exam: NORMAL ACCOMODATION, PERRL - ENT Exam ENT Exam: Mucous Membranes Moist, Normal Exam - Neck Exam Neck exam: Positive for: Normal Inspection - Respiratory Exam Respiratory Exam: Decreased Breath Sounds - Cardiovascular Exam Cardiovascular Exam: REGULAR RHYTHM, +S1, +S2 - GI/Abdominal Exam GI & Abdominal Exam: Diminished Bowel Sounds, Soft - Rectal Exam Rectal Exam: Deferred Results - Vital Signs Recent Vital Signs: Last Vital Signs Temp 98.2 F 11/06/17 08:26 Pulse 64 11/06/17 08:26 Resp 18 11/06/17 08:26 BP 124/76 11/06/17 08:26 Pulse Ox 98 11/06/17 08:26 - Labs Result Diagrams: 11/05/17 19:55 11/05/17 19:55 Labs: Laboratory Results - last 24 hr 11/05/17 11/05/17 11/06/17 19:55 19:55 11:49 WBC 15.2 H D RBC 5.03 Hgb 13.6 D Hct 41.2 MCV 81.9 MCH 27.1 MCHC 33.1 RDW 13.3 Plt Count 240 MPV 8.4 Neut % (Auto) 81.3 H Lymph % (Auto) 11.8 L Emm[place] % (Auto) 5.2 Eos % (Auto) 1.6 Baso % (Auto) 0.1 Neut # (Auto) 12.3 H Lymph # (Auto) 1.8 Emmet # (Auto) 0.8 Eos # (Auto) 0.2 Baso # (Auto) 0.0 Sodium 144 Potassium 5.2 Chloride 98 Carbon Dioxide 32 H Anion Gap 19 BUN 10 Creatinine 0.8 Est GFR ( Amer) > 60 Est GFR (Non-Af Amer) > 60 Random Glucose 154 H Calcium 9.5 Total Bilirubin 0.6 AST 63 H D ALT 55 Alkaline Phosphatase 73 Total Protein 8.2 Albumin 4.4 Globulin 3.8 Albumin/Globulin Ratio 1.1 Lipase 50 Urine Color Yellow Urine Clarity Clear Urine pH 7.0 Ur Specific [place] 1.006 Urine Protein Negative Urine Glucose (UA) Normal Urine Ketones Negative Urine Blood Negative Urine Nitrate Negative Urine Bilirubin Negative Urine Urobilinogen Normal Ur Leukocyte Esterase Neg Urine WBC (Auto) < 1 Urine RBC (Auto) 1 Urine Opiates Screen Urine Methadone Screen Ur Barbiturates Screen Ur Phencyclidine Scrn Ur Amphetamines Screen U Benzodiazepines Scrn U Oth Cocaine Metabols U Cannabinoids Screen 11/06/17 11:49 WBC RBC Hgb Hct MCV MCH MCHC RDW Plt Count MPV Neut % (Auto) Lymph % (Auto) [place] % (Auto) Eos % (Auto) Baso % (Auto) Neut # (Auto) Lymph # (Auto) Emm[place] # (Auto) Eos # (Auto) Baso # (Auto) Sodium Potassium Chloride Carbon Dioxide Anion Gap BUN Creatinine Est GFR ( Amer) Est GFR (Non-Af Amer) Random Glucose Calcium Total Bilirubin AST ALT Alkaline Phosphatase Total Protein Albumin Globulin Albumin/Globulin Ratio Lipase Urine Color Urine Clarity Urine pH Ur Specific [place] Urine Protein Urine Glucose (UA) Urine Ketones Urine Blood Urine Nitrate Urine Bilirubin Urine Urobilinogen Ur Leukocyte Esterase Urine WBC (Auto) Urine RBC (Auto) Urine Opiates Screen Positive H Urine Methadone Screen Positive H Ur Barbiturates Screen Negative Ur Phencyclidine Scrn Negative Ur Amphetamines Screen Negative U Benzodiazepines Scrn Negative U Oth Cocaine Metabols Negative U Cannabinoids Screen Negative
[2017-11-07 02:00] VITALS: RESP 20
[2017-11-07] MEDS: Dextrose 5%/0.45% NS 1,000 ML IV SCH ×2 (06:25→14:15)
[2017-11-07] MEDS: cefTRIAXone IV 1 gm in Dextros 50 ML IVPB SCH (09:20)
[2017-11-07] MEDS: Methadone 40 mg Tab PO SCH (09:30)
[2017-11-07] MEDS ORDERED: metroNIDAZOLE IV 500 mg/100 ml 500 MG/100 ML BAG IVPB SCH (10:00)
--- NOTE | 2017-11-07 15:42 | CP.PCM.PN ---
Subjective - Date & Time of Evaluation Date of Evaluation: 11/07/17 Time of Evaluation: 15:39 - Subjective Subjective: PGY2 progress note for Dr. Tapia 42 year old male with past medical history of Omphocele with repair as an infant and recurrent SBO, last episode 3 months ago, is admitted for SBO. Patient was discharged from hospital for same complaint 1 day before and stated that he had a large meal for dinner and then developed severe abd pain. Currently patient states abd pain has improved. patient had large BM after getting lactulose. Denies having any N/V, F/C, CP, SOB currently. PMHx: stated above Sx: Omphocele repai social: denies tobacco, etoh or drug use no home meds Objective - Vital Signs/Intake and Output Vital Signs (last 24 hours): Temp Pulse Resp BP Pulse Ox 97.3 F L 57 L 20 114/70 98 11/07/17 07:25 11/07/17 07:25 11/07/17 07:25 11/07/17 07:25 11/07/17 07:25 Intake and Output: 11/07/17 11/07/17 06:59 18:59 Intake Total 1580 Output Total 1750 Balance -170 - Medications Medications: Current Medications Ceftriaxone Sodium (Rocephin Iv 1 Gm Duplex) 50 mls @ 100 mls/hr IVPB DAILY [facility] PRN Reason: Protocol Last Admin: 11/07/17 09:20 Dose: 100 mls/hr Dextrose/Sodium Chloride (Dextrose 5%/0.45% Ns 1000 Ml) 1,000 mls @ 100 mls/hr IV .Q10H ON LICENSE OF [facility] Last Admin: 11/07/17 14:15 Dose: Not Given Metronidazole (Flagyl) 500 mg in 100 mls @ 100 mls/hr IVPB Q8H [facility] PRN Reason: Protocol Last Admin: 11/07/17 11:14 Dose: 100 mls/hr Methadone HCl (Methadose) 240 mg PO DAILY [facility] Last Admin: 11/07/17 09:30 Dose: 240 mg Pantoprazole Sodium (Protonix Inj) 40 mg IVP DAILY ON LICENSE OF [facility] Last Admin: 11/07/17 09:30 Dose: 40 mg - Labs Labs: 11/05/17 19:55 11/05/17 19:55 - Constitutional Appears: Non-toxic, No Acute Distress - Head Exam Head Exam: ATRAUMATIC, NORMOCEPHALIC - ENT Exam ENT Exam: Mucous Membranes Moist - Respiratory Exam Respiratory Exam: Clear to Ausculation Bilateral. absent: Rales, Rhonchi, Wheezes - Cardiovascular Exam Cardiovascular Exam: REGULAR RHYTHM, +S1, +S2. absent: Gallop, Rubs, Murmur - GI/Abdominal Exam GI & Abdominal Exam: Soft, Normal Bowel Sounds. absent: Distended, Firm, Guarding, Rigid, Tenderness, Organomegaly - Extremities Exam Extremities Exam: absent: Pedal Edema, Tenderness - Neurological Exam Neurological Exam: Alert, Awake, Oriented x3 - Psychiatric Exam Psychiatric exam: Normal Affect, Normal Mood - Skin Skin Exam: Dry, Intact, Normal Color, Warm Assessment and Plan - Assessment and Plan (Free Text) Assessment: 42 year old male with past medical history of omphocele repair in infancy and hx of recurrent SBOs is admitted for SBO. Abd x ray obstructive series showed persistent dilated small bowel loops with air levels in mid abdomen consistent with SBO SBO - Pt refused NG tube on admission. No plan for OR - Surgery, Dr. Valderrama is consulted - Currently on D5/1/2 NS - NPO - Pt started on rocephin and flagyl - continue serial abd exams - Will advance diet based on surgery recs Opiate abuse - UDS positive for opiates and mathadone - Continue methadone 240 mg po qd [facility] - Continue home medication of Adderall 30 mg po bid Prophylaxis - Protonix - SCDs - Lovenox All orders and management per Dr. Tapia
[2017-11-07 16:00] VITALS: BP 131/56; PULSE 60; TEMP 97.7; O2SAT 95
--- NOTE | 2017-11-07 16:34 | CP.PCM.PN ---
<Selvin Soares - Last Filed: 11/07/17 16:31> Subjective - Date & Time of Evaluation Date of Evaluation: 11/07/17 Time of Evaluation: 07:00 - Subjective Subjective: General Surgery Progress Note This 42M was seen and examined this AM from bedside. No acute events overnight, He is tolerating liquid diet passing gas abdominal pain is resolved. Patient reports that he cannot stay in the hospital because he has a doctors appointment today that he can not miss. Objective - Vital Signs/Intake and Output Vital Signs (last 24 hours): Temp Pulse Resp BP Pulse Ox 97.7 F 60 20 131/56 L 95 11/07/17 15:00 11/07/17 15:00 11/07/17 15:00 11/07/17 15:00 11/07/17 15:00 Intake and Output: 11/07/17 11/07/17 06:59 18:59 Intake Total 1580 Output Total 1750 Balance -170 - Medications Medications: Current Medications Enoxaparin Sodium (Lovenox) 40 mg SC DAILY COUNTS INCLUDE 234 BEDS AT THE [facility] Home Med (Dextroamphetamine/Amphetamine [Adderall 30 Mg Tablet]) 30 mg PO BID COUNTS INCLUDE 234 BEDS AT THE [facility] Ceftriaxone Sodium (Rocephin Iv 1 Gm Duplex) 50 mls @ 100 mls/hr IVPB DAILY COUNTS INCLUDE 234 BEDS AT THE [facility] PRN Reason: Protocol Last Admin: 11/07/17 09:20 Dose: 100 mls/hr Dextrose/Sodium Chloride (Dextrose 5%/0.45% Ns 1000 Ml) 1,000 mls @ 100 mls/hr IV .Q10H COUNTS INCLUDE 234 BEDS AT THE [facility] Last Admin: 11/07/17 14:15 Dose: Not Given Metronidazole (Flagyl) 500 mg in 100 mls @ 100 mls/hr IVPB Q8H [facility] PRN Reason: Protocol Last Admin: 11/07/17 11:14 Dose: 100 mls/hr Methadone HCl (Methadose) 240 mg PO DAILY COUNTS INCLUDE 234 BEDS AT THE [facility] Last Admin: 11/07/17 09:30 Dose: 240 mg Pantoprazole Sodium (Protonix Inj) 40 mg IVP DAILY COUNTS INCLUDE 234 BEDS AT THE [facility] Last Admin: 11/07/17 09:30 Dose: 40 mg - Labs Labs: 11/05/17 19:55 11/05/17 19:55 - Constitutional Appears: Non-toxic, No Acute Distress - Head Exam Head Exam: ATRAUMATIC, NORMOCEPHALIC - Eye Exam Eye Exam: EOMI, Normal appearance - Respiratory Exam Respiratory Exam: NORMAL BREATHING PATTERN - Cardiovascular Exam Cardiovascular Exam: +S1, +S2 - GI/Abdominal Exam GI & Abdominal Exam: Soft. absent: Distended, Guarding, Rigid, Tenderness - Neurological Exam Neurological Exam: Alert, Awake - Skin Skin Exam: Dry, Intact Assessment and Plan - Assessment and Plan (Free Text) Assessment: 42M with recurrent SBO Liquid diet monitor bowel function Diet education If AMA recommend followup in office tomorrow D/W Dr. Lavelle Soares PGY2 <Nick Valderrama B - Last Filed: 11/07/17 21:21> Objective - Vital Signs/Intake and Output Vital Signs (last 24 hours): Temp Pulse Resp BP Pulse Ox 97.7 F 60 20 131/56 L 95 11/07/17 15:00 11/07/17 15:00 11/07/17 15:00 11/07/17 15:00 11/07/17 15:00 Intake and Output: 11/07/17 11/08/17 18:59 06:59 Intake Total 800 Balance 800 - Labs Labs: 11/05/17 19:55 11/05/17 19:55 Attending/Attestation - Attestation I have personally seen and examined this patient.: Yes I have fully participated in the care of the patient.: Yes I have reviewed all pertinent clinical information, including history, physical exam and plan: Yes Notes (Text): Pt was seen and examined at bedside Agree with above note and assessment Pt with recurrent PSBO Passing Gas Wants to go home c.w liquid diet for 2 weeks f.u as out pt c.w current mx Plan d.w pt in detail Risk and benefit explained in detail.
[2017-11-07] MEDS ORDERED: DEXTROAMPHETAMINE PO SCH (18:00)
[2017-11-07] MEDS ORDERED: AMPHETAMINE PO SCH (18:00)
--- NOTE | 2017-11-07 19:09 | CP.PCM.PN ---
Subjective - Date & Time of Evaluation Date of Evaluation: 11/07/17 Time of Evaluation: 11:00 - Subjective Subjective: clinically same Objective - Vital Signs/Intake and Output Vital Signs (last 24 hours): Temp Pulse Resp BP Pulse Ox 97.7 F 60 20 131/56 L 95 11/07/17 15:00 11/07/17 15:00 11/07/17 15:00 11/07/17 15:00 11/07/17 15:00 Intake and Output: 11/07/17 11/08/17 18:59 06:59 Intake Total 800 Balance 800 - Medications Medications: Current Medications Enoxaparin Sodium (Lovenox) 40 mg SC DAILY [facility] Home Med (Dextroamphetamine/Amphetamine [Adderall 30 Mg Tablet]) 30 mg PO BID [facility] Ceftriaxone Sodium (Rocephin Iv 1 Gm Duplex) 50 mls @ 100 mls/hr IVPB DAILY [facility] PRN Reason: Protocol Last Admin: 11/07/17 09:20 Dose: 100 mls/hr Dextrose/Sodium Chloride (Dextrose 5%/0.45% Ns 1000 Ml) 1,000 mls @ 100 mls/hr IV .Q10H [facility] Last Admin: 11/07/17 14:15 Dose: Not Given Metronidazole (Flagyl) 500 mg in 100 mls @ 100 mls/hr IVPB Q8H [facility] PRN Reason: Protocol Last Admin: 11/07/17 11:14 Dose: 100 mls/hr Methadone HCl (Methadose) 240 mg PO DAILY [facility] Last Admin: 11/07/17 09:30 Dose: 240 mg Pantoprazole Sodium (Protonix Inj) 40 mg IVP DAILY [facility] Last Admin: 11/07/17 09:30 Dose: 40 mg - Labs Labs: 11/05/17 19:55 11/05/17 19:55 - Constitutional Appears: Well - Head Exam Head Exam: ATRAUMATIC, NORMAL INSPECTION, NORMOCEPHALIC - Eye Exam Eye Exam: EOMI, Normal appearance, PERRL Pupil Exam: NORMAL ACCOMODATION, PERRL - ENT Exam ENT Exam: Mucous Membranes Moist, Normal Exam - Neck Exam Neck Exam: Full ROM, Normal Inspection. absent: Lymphadenopathy - Respiratory Exam Respiratory Exam: Decreased Breath Sounds - Cardiovascular Exam Cardiovascular Exam: REGULAR RHYTHM, +S1, +S2 - GI/Abdominal Exam GI & Abdominal Exam: Soft, Diminished Bowel Sounds - Rectal Exam Rectal Exam: Deferred Assessment and Plan (1) Abdominal pain Status: Acute (2) Abnormal urinalysis Status: Acute (3) Animal bite wound Status: Acute (4) Dyspnea Status: Acute (5) Enterocolitis Status: Acute (6) Mite allergy Status: Acute (7) Narcotic dependence Status: Acute (8) Nausea Status: Acute (9) Prophylactic measure Status: Acute (10) Small bowel obstruction Status: Acute (11) Tobacco dependence Status: Acute (12) Vomiting Status: Acute - Assessment and Plan (Free Text) Plan: Continue Rocephin continue metronidazole patient was n.p.o. needed to aspect of the surgeon to figure it out with the patient can be started on the medication not patient decided to sign out AGAINST MEDICAL ADVICE patient off patient is aware of consequences and patient signed out
[2017-11-08] MEDS ORDERED: Enoxaparin 40 mg Syringe SC SCH (10:00)
== END 2017-11-07 16:10 | disposition left against medical advice (07) | DRG 180 ==
LOC: C.ER 18:34 → C.9E 20:37 → C.6T 21:00
PROVIDERS: ADMIT Internal Medicine Nephrology; ATTEND Internal Medicine Nephrology
DX: K56.600 Partial intestinal obstruction, unspecified as to cause (principal); F11.20 Opioid dependence, uncomplicated; K52.9 Noninfective gastroenteritis and colitis, unspecified; F17.200 Nicotine dependence, unspecified, uncomplicated